=== PATIENT | female | born 1955 | race Caucasian/White ===

== ENCOUNTER 2017-03-06 12:43 | Outpatient (CLI) | payer BC ==
--- NOTE | 2017-03-06 13:56 | RAD ---
CHEST PA AND LATERAL 2 VIEWS: Date: 03/06/17 HISTORY: [id number] female with history of malignant neoplasm of the upper lobe of the lung. COMPARISON: 10/17/16. FINDINGS: Right subclavian catheter and injection port. Postop changes at the right hilum. Prominently calcifie d bilateral breast augmentation prosthesis. No confluent pneumonia, overt edema, or pleural effusion. IMPRESSION: No acute intrathoracic disease. Postop changes in the right hilum. Stable from prior study. No eviden ce for metastasis. POS: [facility]
== END 2017-03-06 12:44 | disposition home or self-care (01) ==
LOC: RAD 12:43
PROVIDERS: ATTEND Internal Medicine Medical Oncology
DX: C34.10 Malignant neoplasm of upper lobe, unspecified bronchus or lung (principal); Z98.890 Other specified postprocedural states
CPT/HCPCS: 71046; 80053; 82248; 82378; 83615; 84100; 84550

== ENCOUNTER 2017-04-02 08:57 | Outpatient (CLI) | payer BC | END 2017-04-02 08:58 | disposition home or self-care (01) | LOC: BICMAMMO 08:57 | PROVIDERS: ATTEND Family Medicine | DX: Z12.31 Encounter for screening mammogram for malignant neoplasm of breast (principal); Z80.3 Family history of malignant neoplasm of breast; Z85.118 Personal history of other malignant neoplasm of bronchus and lung; Z85.841 Personal history of malignant neoplasm of brain | CPT/HCPCS: 77063; 77067 ==

== ENCOUNTER 2017-05-02 08:52 | Outpatient (CLI) | payer BC ==
--- NOTE | 2017-05-02 12:05 | MRI ---
BRAIN MRI WITH AND WITHOUT CONTRAST: Date: 05/02/17 HISTORY: Malignant secondary neoplasm of the brain. Follow-up exam. Patient is tender to touch along the back of the scalp. COMPARISON: 01/03/17. TECHNIQUE: Brain MRI is performed with and without intravenous Gadolinium administration. Multisequential, multi planar imaging is performed. FINDINGS: Stable postsurgical change involving the left occipital calvarium. There is a stable surgical cavity. There is a stable small focus of fluid along the left extra-axial space at the level of the surgical cavity suggesting a chronic collection. Surgical cavity measures 4.4 x 4.3 cm (previously 4.0 x 4.4 cm). Gradient echo sequence demonstrates residual hemosiderin deposition. Stable T2 hyperintense, FLAIR hypointense lesion in the right frontal periventricular white matter. C hronic small vessel ischemic changes of white matter identified. Malacic gliotic changes in the left occipital lobe are noted. No midline shift. Basilar cisterns are patent. Brain volume, less than expected for patient's age. Cortical chacko-white matter differentiation is pre served with the exception of left occipital lobe. No evidence of hydrocephalus. Central arterial flow-voids are maintained. Absent restricted diffusion. Calvarium has a normal T1 marrow signal intensity. There is a small focus of enhancement involving the left posterior superior medial left femoral lobe. This area of enhancement has developed since the previous examination. Small metastatic focus is fav ored, given that this region is remote from the previous surgical site. There is a questionable second enhancing focus involving the posterior left anterior parietal lobe, o nly appreciated on the sagittal image (series 101, image 90). No obvious abscesses in the left scalp. Metallic susceptibility artifact due to surgical clips are no therese. IMPRESSION: 1. Stable postsurgical changes. 2. Interval development of an enhancing foci in the left frontal lobe suggesting a small area of met astasis. POS: [facility]
== END 2017-05-02 08:53 | disposition home or self-care (01) ==
LOC: TBSIIMAG 08:52
PROVIDERS: ATTEND Neurological Surgery
DX: C79.31 Secondary malignant neoplasm of brain (principal); Z98.890 Other specified postprocedural states
CPT/HCPCS: 70553

== ENCOUNTER 2017-05-17 09:10 | Day surgery (SDC) | payer BC ==
[2017-05-16 08:58] VITALS: BMI 22.8
[2017-05-17] MEDS ORDERED: Midazolam HCl 2 mg/2 ml Vial ONE (11:29)
--- NOTE | 2017-05-17 13:54 | MRI ---
MRI BRAIN WITH CONTRAST: Date: 05/17/17 HISTORY: 61-year-old female with brain metastasis from lung cancer. TECHNIQUE: This was specifically ordered as MRI brain with contrast only, by the radiation oncologist. COMPARISON: 05/02/17 standard brain MRI with and without contrast. TECHNIQUE: Following the IV injection of 12 mL of MultiHance Gadolinium based contrast agent, T1-weighted MPR ax ial and T1-weighted FLASH 3D coronal sequences were obtained. No other sequences. FINDINGS: Again noted is the left occipital craniotomy defect, deep to which there is a large, approximately 5 x 3 x 3 cm fluid-filled postsurgical cavity replacing a large portion of the left occipital lobe. No abnormal enhancement associated with this. Again noted is the small, approximately 0.7 x 0.4 x 0.4 cm focus of left paramedian intra-axial enhan cement in the posterior superior frontal lobe brain parenchyma. Ventricles are normal in size and configuration. Diffusely, homogeneously, increased pachymeningeal e nhancement is secondary to craniotomy. No other enhancing lesions are visualized. IMPRESSION: 1. Evidence for solitary tiny left paramedian posterior upper frontal intra-axial metastatic cerebra l lesion. 2. Postsurgical large left occipital porencephalic cyst, deep to a left occipital craniotomy defect. 3. No mass effect. POS: [facility]
== END 2017-05-17 13:35 | disposition home or self-care (01) ==
LOC: SDC/OP 09:10 → EDSTATUS 14:00
PROVIDERS: ATTEND Radiology Radiation Oncology
DX: C79.31 Secondary malignant neoplasm of brain (principal); C34.90 Malignant neoplasm of unspecified part of unspecified bronchus or lung; I10 Essential (primary) hypertension; K21.9 Gastro-esophageal reflux disease without esophagitis; F32.9 Major depressive disorder, single episode, unspecified; Z88.0 Allergy status to penicillin; Z79.82 Long term (current) use of aspirin; Z79.899 Other long term (current) drug therapy; Z87.891 Personal history of nicotine dependence; Z86.73 Personal history of transient ischemic attack (TIA), and cerebral infarction without residual deficits
CPT/HCPCS: 70552; J2250

== ENCOUNTER 2017-08-01 14:09 | Outpatient (CLI) | payer BC ==
--- NOTE | 2017-08-01 16:07 | MRI ---
BRAIN MRI WITH AND WITHOUT CONTRAST: 08/01/17 COMPARISON: 05/02/17. INDICATION: Lung cancer, brain metastases. Status post radiosurgery with request for imaging restaging. FINDINGS: Redemonstration of prominent gliosis throughout each cerebral hemisphere. There is cavitary encephalo malacia again seen at the left occipital and posterior left temporal region. Component of ex vacuo di latation of the occipital horn left lateral ventricle is similar in appearance. Postoperative suscept ibility artifact at the posterior left cranial fossa is again seen. There is no acute territorial inf arction. Chronic left cerebellar hemispheric lacunar infarction is present. There has been progressio n and volume of intra-axial enhancing focus at the medial left frontal parietal region, rounded in mo rphology, measuring 7 mm in axial diameter. There is surrounding vasogenic edema. IMPRESSION: Progressive metastatic lesion involving medial left frontoparietal lobe with progression and surround ing vasogenic edema. POS: [facility]
== END 2017-08-01 14:10 | disposition home or self-care (01) ==
LOC: TBSIIMAG 14:09
PROVIDERS: ATTEND Radiology Radiation Oncology
DX: C79.31 Secondary malignant neoplasm of brain (principal); C34.90 Malignant neoplasm of unspecified part of unspecified bronchus or lung; G93.6 Cerebral edema
CPT/HCPCS: 70553

== ENCOUNTER 2017-08-05 13:24 | Outpatient (CLI) | payer BC ==
--- NOTE | 2017-08-05 15:38 | RAD ---
PA AND LATERAL VIEWS OF CHEST: Date: 08/05/17 HISTORY: Lung cancer follow-up. FINDINGS: Comparison made with exam dated 06/05/16. Right-sided Port-A-Cath remains in place. Postop changes in the right hilum are redemonstrated. The h eart size is normal. Aorta is tortuous. The lungs are expanded with focal areas of consolidation, pne umothoraces, sammy pulmonary edema, or masses. Bilateral calcified breast augmentation prostheses are again seen. No acute osseous abnormalities are identified. IMPRESSION: Stable exam. No acute process. POS: [facility]
== END 2017-08-05 13:25 | disposition home or self-care (01) ==
LOC: RAD 13:24
PROVIDERS: ATTEND Internal Medicine Medical Oncology
DX: C34.12 Malignant neoplasm of upper lobe, left bronchus or lung (principal)
CPT/HCPCS: 71046

== ENCOUNTER 2017-11-14 08:00 | Outpatient (CLI) | payer BC ==
[2017-11-14] MEDS ORDERED: Gadobenate Dimeglumine 529 MG/1 ML (20ML VIAL) ONE (11:22)
--- NOTE | 2017-11-14 12:59 | MRI ---
MRI BRAIN WITH AND WITHOUT CONTRAST: COMPARISON: 08/01/17. HISTORY: Followup surgery and treatment for malignant neoplasm of the brain parenchyma. FINDINGS: Expected hemosiderin deposition of the surgical cavity on the axial gradient echo sequence. No acute parenchymal hemorrhage is appreciated. There is also evidence of hemosiderin deposition associated with a malignant lesion involving the medial left frontal lobe, parafalcine in region. There is wors ening vasogenic edema involving the left frontal, parietal, and occipital regions. Malacic and gliot tic change involving the occipital lobe is noted. Stable surgical cavity along the left occipital re gion. Absent restricted diffusion. Central arterial flow voids are maintained. Minimal enhancing scar tissue involving the dura in the region of surgery (left occipital region). T here is evidence of peripheral enhancement associated with the malignant lesion in the medial aspect of the left frontal lobe, parafalcine in location. This enhancing area measures 1.1 cm mediolateral x 1.5 cm anterior posterior x 1.9 cm craniocaudal. Previously, this lesion measured 7 mm. IMPRESSION: 1. Expected postoperative changes. 2. Enlarging metastatic lesion involving the medial left frontal lobe with worsening vasogenic edema . POS: [facility]
== END 2017-11-14 08:01 | disposition home or self-care (01) ==
LOC: TBSIIMAG 08:00
PROVIDERS: ATTEND Neurological Surgery
DX: C79.31 Secondary malignant neoplasm of brain (principal); G93.9 Disorder of brain, unspecified; R60.0 Localized edema; Z98.890 Other specified postprocedural states
CPT/HCPCS: 70553; 82565; A9579

== ENCOUNTER 2017-12-12 07:25 | Outpatient (CLI) | payer BC ==
--- NOTE | 2017-12-12 08:49 | RAD ---
CHEST 2 VIEWS: Date: 12/12/17 HISTORY: Lung cancer follow-up. COMPARISON: 08/05/17. FINDINGS: Heart size is enlarged. Right-sided MediPort catheter is present. Scoliotic changes of the spine. Ramone ateral breast implants are seen. Surgical clips are noted in the right hilar region. IMPRESSION: 1. Stable exam. Cardiomegaly with postop changes of the right lung. 2. Scoliosis. POS: [facility]
== END 2017-12-12 07:26 | disposition home or self-care (01) ==
LOC: RAD 07:25
PROVIDERS: ATTEND Internal Medicine Medical Oncology
DX: C34.12 Malignant neoplasm of upper lobe, left bronchus or lung (principal); I51.7 Cardiomegaly; M41.9 Scoliosis, unspecified; Z98.890 Other specified postprocedural states
CPT/HCPCS: 71046; 80053; 82248; 82378; 83615; 84100; 84550

== ENCOUNTER 2018-01-09 08:31 | Outpatient (CLI) | payer BC ==
--- NOTE | 2018-01-09 11:00 | MRI ---
MRI BRAIN WITH AND WITHOUT CONTRAST: INDICATION: Malignant neoplasm of the occipital lobe, followup. COMPARISON: Reference is made to 11/14/2017 brain MRI. FINDINGS: Postoperative encephalomalacia of the left occipital lobe is again demonstrated with interspersed, mu ltifocal susceptibility artifact. There is redemonstration of pathologic enhancement at the medial a spect of the left frontoparietal lobe, with interval decrease in volume of prior rim-enhancing lesion . There remains restricted diffusion as well as blanco artifact in this region. The finding indicate s decreasing volume of metastatic lesion with interval decrease with regard to the degree of rim enha ncement, as well. There has been interval improvement of associated vasogenic edema of the left cere bral hemisphere. Persistence of diffuse white matter signal abnormality throughout each cerebral hem isphere is again demonstrated, and has progressed with a more confluent appearance within the right c erebral hemisphere and comparison of left cerebral hemisphere is difficult due to the prominent degre e of vasogenic edema on previous exam. This finding favors radiation-induced leukoencephalopathy. T here is a stable focus of cavitation at the right periventricular white matter adjacent to the right frontal horn. IMPRESSION: 1. Interval decrease in size and interval decrease in enhancement with regards to the metastatic les ion of the medial, left frontoparietal lobe with residual enhancement, susceptibility, and restrictio n present. There has been improved vasogenic edema, as well. 2. Progressive white matter signal abnormality of the cerebral hemispheres favoring radiation-induce d leukoencephalopathy, in the correct clinical context. POS: [facility]
[2018-01-09] MEDS ORDERED: Gadobenate Dimeglumine 529 MG/1 ML (20ML VIAL) ONE (14:30)
== END 2018-01-09 08:32 | disposition home or self-care (01) ==
LOC: TBSIIMAG 08:31
PROVIDERS: ATTEND Neurological Surgery
DX: C71.4 Malignant neoplasm of occipital lobe (principal); C79.31 Secondary malignant neoplasm of brain
CPT/HCPCS: 70553; A9579

== ENCOUNTER 2018-03-04 07:50 | Outpatient (CLI) | payer BC ==
--- NOTE | 2018-03-04 09:13 | RAD ---
TWO VIEWS CHEST: Comparison: 12-12-17 History: Lung cancer. FINDINGS: Two views of the chest shows a normal sized cardiomediastinal silhouette. The Mediport is unchanged i n position. There is no evidence of consolidation, mass, or pleural effusions. There are calcified bi lateral breast implants. There are degenerative changes in the scoliotic curvature of the spine. IMPRESSION: No evidence of acute cardiopulmonary disease. POS: [facility]
== END 2018-03-04 07:51 | disposition home or self-care (01) ==
LOC: RAD 07:50
PROVIDERS: ATTEND Internal Medicine Medical Oncology
DX: C34.12 Malignant neoplasm of upper lobe, left bronchus or lung (principal)
CPT/HCPCS: 71046

== ENCOUNTER 2018-03-06 14:04 | Outpatient (CLI) | payer BC ==
--- NOTE | 2018-03-06 15:20 | RAD ---
RIGHT SHOULDER THREE VIEWS: HISTORY: Shoulder pain. FINDINGS: The humeral head appears normally positioned. No significant degenerative change at the glenohumeral joint. The AC joint is normally aligned. Evidence of an old healed fracture involving the posterior right 6th rib. IMPRESSION: No acute findings. POS: [facility]
== END 2018-03-06 14:05 | disposition home or self-care (01) ==
LOC: RAD 14:04
PROVIDERS: ATTEND Internal Medicine Medical Oncology
DX: M25.511 Pain in right shoulder (principal); C34.10 Malignant neoplasm of upper lobe, unspecified bronchus or lung

== ENCOUNTER 2018-03-13 08:04 | Outpatient (CLI) | payer BC ==
[2018-03-13] MEDS ORDERED: Gadobenate Dimeglumine 529 MG/1 ML (20ML VIAL) ONE (11:27)
--- NOTE | 2018-03-13 11:34 | MRI ---
MRI BRAIN WITH AND WITHOUT CONTRAST: Date: 03/13/18 HISTORY: Secondary malignant neoplasm of the brain. Brain tumor follow-up. COMPARISON: 01/09/18. FINDINGS: Hemosiderin deposition in the left cerebellar hemisphere, left cerebrum are redemonstrated. No acute hemorrhage on the axial gradient echo sequence. Postsurgical changes compatible with left occipital craniectomy. There is a postsurgical cavity in th e left occipital region currently measuring 4.3 x 3.5 cm (previously measuring 4.0 x 3.9 cm). There i s associated peripheral T2 and FLAI hyperintensity suggesting gliotic change. Additional, stable T2 a nd FLAIR white matter hyperintensities are noted. Central arterial flow-voids are maintained. Absent restricted diffusion. Remote lacunar infarct in the right frontal subcortical white matter. Postcontrast images are limited due to motion degradation. There is a focal faint area of enhancement along the medial left frontoparietal cortex. The degree of enhancement has decreased when compared t o the previous exam. Mucosal disease of the maxillary sinuses is noted. IMPRESSION: 1. Redemonstration of a postsurgical cavity in the left occipital region, without any significant in crease in size. 2. Faint focus of enhancement involving the medial aspect of the left frontoparietal region. This fo cus of enhancement has decreased in size and currently measures 0.6 x 0.1 cm. POS: [facility]
== END 2018-03-13 08:05 | disposition home or self-care (01) ==
LOC: TBSIIMAG 08:04
PROVIDERS: ATTEND Neurological Surgery
DX: C79.31 Secondary malignant neoplasm of brain (principal)
CPT/HCPCS: 70553; 82565; A9579

== ENCOUNTER 2018-04-04 08:54 | Outpatient (CLI) | payer BC | END 2018-04-04 08:55 | disposition home or self-care (01) | LOC: BICMAMMO 08:54 | PROVIDERS: ATTEND Family Medicine | DX: Z12.31 Encounter for screening mammogram for malignant neoplasm of breast (principal); Z80.3 Family history of malignant neoplasm of breast; Z85.118 Personal history of other malignant neoplasm of bronchus and lung; Z85.841 Personal history of malignant neoplasm of brain | CPT/HCPCS: 77063; 77067 ==

== ENCOUNTER 2018-06-16 12:40 | Inpatient (IN) | payer BC ==
[2018-06-16 13:43] VITALS: BMI 21.4
[2018-06-16] MEDS ORDERED: Bisacodyl 5 MG TAB PO PRN (14:15)
[2018-06-16 14:43] LABS: Hemoglobin 10.6 g/dL (12.0-16.0); Mean Corpuscular HGB CONC 31.8 g/dL (32.0-36.0); Mean Corpuscular Hemoglobin 29.4 pg (27.0-31.0); Mean Corpuscular Volume 92.5 fL (78.0-98.0); Mean Platelet Volume 6.6 fL (7.4-10.4); Platelet Count 574 thou/uL (130-400); RBC Distribution Width 12.5 % (11.5-14.5); Red Blood Cell (RBC) Count 3.59 mill/uL (4.20-5.40); White Blood Cell (WBC) Count 20.8 thou/uL (4.8-10.8)
[2018-06-16 14:56] LABS: ALT (SGPT) 45 U/L (8-55); AST (SGOT) 33 U/L (5-34); Albumin 3.2 g/dL (3.5-5.0); Alkaline Phosphatase 161 U/L (40-150); Anion Gap 17 mmol/L (10-20); BUN (Urea Nitrogen) 24 mg/dL (9.8-20.1); Bilirubin, Total 1.1 mg/dL (0.2-1.2); Calc. Creatinine Clearance 48 mL/min (70-130); Calcium 10.1 mg/dL (7.8-10.44); Carbon Dioxide 20 mmol/L (22-29); Chloride 102 mmol/L (98-107); Estimated GFR-MDRD 61; Globulin 3.7 g/dL (2.4-3.5); Glucose 100 mg/dL (70-105); Potassium 4.4 mmol/L (3.5-5.1); Protein, Total 6.9 g/dL (6.0-8.3); Sodium 135 mmol/L (136-145)
[2018-06-16 14:59] LABS: Band 5 % (5-11); Lymphocytes 4 % (21-51); MDiff Complete? YES; Monocytes 6 % (0-10); Neutrophil 84 % (42-75); Platelet Morphology Comment Appears Increased; Polychromasia SLIGHT = 2-3 cells (100X) (0-2/hpf)
[2018-06-16] MEDS ORDERED: ISOVUE-370 76%-LOCM 1 ML ONE (15:04)
--- NOTE | 2018-06-16 15:06 | HP ---
PRIMARY CARE PROVIDER: Jose Alejandro Roe MD CHIEF COMPLAINT: Generalized weakness. HISTORY OF PRESENT ILLNESS: Ms. Rollins is a pleasant 62-year-old lady, who was seen at [facility] on June 16, 2018, following direct admission from her primary care provider's office. I discussed her case with Dr. Roe prior to this admission, and he updated me of medical history as well as active issues at this time. She has a history of lung cancer with metastasis to brain. She underwent chemotherapy in the past. Her oncologist is Dr. Norwood. She also had brain metastases and underwent 3 surgeries for the same. Her neurosurgeon is Dr. Peguero. She reports that she was doing well earlier this year. Over the last 3 weeks, she started feeling nauseous. She reports very little vomiting, main symptom is nausea. She is not tolerating oral diet. Her blood pressure has also been low, which is unusual for her. She reports that she is taking all her medications at this time, including antihypertensives. She also reports left hip pain and left lower quadrant pain. She is unable to characterize it further. Her last bowel movement was yesterday. She reports losing 12 pounds weight over the last 3 weeks. She reports generalized weakness, difficulty getting around the house. She denies any fevers or chills. REVIEW OF SYSTEMS: All other systems reviewed and found to be negative. PAST MEDICAL HISTORY: Lung cancer, brain metastases, hypertension, dyslipidemia , stroke, alcohol abuse, tobacco abuse, gastroesophageal reflux disease, depression, and osteoarthritis. PAST SURGICAL HISTORY: Right total knee replacement, breast implants, lung cancer surgery, neurosurgery for brain metastasis x3, and left total knee replacement. FAMILY HISTORY: Significant for breast cancer and diabetes in her mother. SOCIAL HISTORY: The patient denies current tobacco use, alcohol use, or recreational drug use. CODE STATUS: I attempted to discuss her code status. She would like to think about it and discuss with her . She is aware that by default, she is full code. ALLERGIES: Penicillins CURRENT MEDICATIONS: 1. Irbesartan 300 mg daily. 2. Amlodipine 10 mg daily. 3. Simvastatin 20 mg in the evening. 4. Aspirin 81 mg daily. 5. Aleve p.r.n. 6. Women's Daily Formula one tablet daily. 7. Potassium chloride 20 mEq 2 times a day. PHYSICAL EXAMINATION: GENERAL: On examination, Ms. Rollins is awake and alert, not in acute distress. VITAL SIGNS: Blood pressure is 92/57, pulse 74, respiratory rate 16, and oxygen saturation 95% on room air. She is afebrile. EYES: No scleral icterus. No conjunctival pallor. She has strabismus. ENT: Dry mucosal membranes. No oropharyngeal erythema or exudates. NECK: Supple, nontender, trachea is midline. RESPIRATORY: Accessory muscles of breathing are not active. Chest wall movements are symmetric bilaterally. LUNGS: Clear to auscultation without wheeze, rhonchi, or crepitations. CARDIOVASCULAR: S1 and S2 are heard, regular. Peripheral pulses palpable. ABDOMEN: Soft, mild left lower quadrant tenderness, no guarding or rigidity, she appears to have a mass in the left lower quadrant. NEUROLOGIC: Cranial nerves 2 through 12 are intact. MUSCULOSKELETAL: Power is 5/5 in all four extremities. SKIN: No rashes or subcutaneous nodules. LYMPHATIC: No cervical lymphadenopathy. PSYCHIATRIC: Normal mood, normal affect, the patient is oriented to person, place, and time. LABORATORY DATA: Ms. Rollins is currently awaiting blood work. ASSESSMENT AND PLAN: Ms. Rollins is a pleasant 62-year-old lady, who was seen at [facility] on June 16, 2018, following direct admission from primary care provider's office. Her problem list includes: 1. Generalized weakness: Ms. Rollins is presenting with generalized weakness, secondary to poor oral intake due to nausea. She also reports significant weight loss. She will be admitted to the hospital for further management. We will check her blood work. We will also check CT scan of chest, abdomen, and pelvis. I am deferring ordering this test until her creatinine is available. We will provide intravenous hydration. We will ask dietitian to see the patient to help with nutrition management. 2. Abdominal pain: She reports abdominal pain. She appears to have a mass in her left lower quadrant. We will check CT scan to evaluate. 3. Hypertension: The patient's blood pressure is actually low at this time. We will hold antihypertensives. 4. History of lung cancer: We will consult Oncology Service for opinion and help with management. 5. Depression: Mild, appears to be stable. Many thanks for allowing me to participate in your patient's care. Please feel free to contact me with any questions or concerns. LEVEL OF RISK: Moderate. LEVEL OF COMPLEXITY: Moderate. Job ID: [id number] MTDD
[2018-06-16] MEDS: Sodium Chloride 0.9% 1,000 ML IV SCH (15:57)
[2018-06-16] MEDS ORDERED: Calcium Carbonate 500 MG ChewTAB PO PRN (18:06)
[2018-06-16] MEDS ORDERED: GLYCERIN EA EYE PRN (18:30)
[2018-06-16] MEDS ORDERED: NAPHAZOLINE EA EYE PRN (18:30)
[2018-06-16] MEDS ORDERED: Naproxen 500 MG TAB PO PRN (18:30)
[2018-06-16] MEDS ORDERED: ZINC SULF EA EYE PRN (18:30)
--- NOTE | 2018-06-16 19:27 | CT ---
CT OF THE CHEST, ABDOMEN, AND PELVIS: Date: 06-16-18 Comparison: None. History: Evaluate for malignancy, history of lung cancer with recent weight loss and nausea. Technique: Axial CT imaging at 5 mm intervals from lung bases through pubic symphysis with IV and ora l contrast. Coronal reformatted imaging obtained. FINDINGS: There are rim calcified breast implants present. A right sided port-a-cath is noted, distal tip exten ding into the region of the cavoatrial junction. No axillary, mediastinal, or hilar lymphadenopathy is seen. Scattered coronary arterial calcification is noted. There is scattered atherosclerotic calcification of the proximal great vessels as well. There is no pneumothorax. No pleural, paracardial, or mediastinal fluid is seen. Nonspecific ill-defined ground glass nodule noted within right lower lobe on axial image 28, coronal image 81, measuring approximately 8 mm in greatest dimension. Post-operative suture material is seen in the right hilar region. Linear density in the lingula is noted suggesting scar and/or volume loss. The osseous structures of the chest demonstrate no worrisome lytic or blastic bone lesions. No free intraperitoneal gas. No discrete hepatic lesion noted. Gallbladder and spleen appear grossly unremarkable. No discrete matthews creatic mass lesion. Adrenal glands and kidneys demonstrate no acute finding. There is a large lobulated hypodense irregular rim-enhancing lesion within the posterior and lateral left abdomen measuring at least 15.7 cm in greatest craniocaudal dimension, 6.9 cm in AP dimension an d 6.9 cm in transverse dimension. This is intimately associated with the anterior aspect of the iliac us muscle and the left lateral aspect of the psoas muscle, abutting the posterior aspect of the desce nding colon. This large lesion is markedly hypodense centrally, with a thin peripheral enhancing rim. There is no evidence for bowel obstruction. The vascular structures of the abdomen/pelvis appear patent with scattered atherosclerotic calcificat ion of the abdominal aorta noted. No retroperitoneal lymphadenopathy. Osseous structures of abdomen/p naeem demonstrate no worrisome lytic or blastic bone lesion. IMPRESSION: 1. Large hypodense lobulated and irregular mass lesion involving the iliopsoas musculature on the lef t, inseparable from the posterior wall of the descending colon. Etiology is uncertain. This may repre sent an abscess or a markedly necrotic metastatic lesion. Clinical correlation is essential. This les ion appears amendable to CT guided sampling. Additional findings as detailed above, including a pulmo nary nodule within the right lower lobe for which short term follow up CT examination of the chest in 3 months advised. Code T POS: [facility]
[2018-06-16] MEDS: Multivit, Therapeutic 1 TAB PO SCH (20:26)
[2018-06-16] MEDS: Atorvastatin Calcium 10 MG TAB PO SCH (20:27)
[2018-06-17] MEDS: Acetaminophen 325 MG TAB PO PRN ×3 (02:10→19:41)
[2018-06-17] MEDS: Sodium Chloride 0.9% 1,000 ML IV SCH ×2 (05:27→19:39)
[2018-06-17 06:40] LABS: #Eosinphils 0.1 thou/uL (0.0-0.7); #Lymphocytes 1.6 thou/uL (1.20-3.40); #Monocytes 1.2 thou/uL (0.11-0.59); #Neutrophils 11.7 thou/uL (1.40-6.50); %Basophils 0.1 % (0.0-1.0); %Eosinophils 0.6 % (0.0-10.0); %Lymphocytes 10.9 % (21.0-51.0); %Monocytes 7.9 % (0.0-10.0); %Neutrophils 80.5 % (42.0-75.0); Hemoglobin 9.6 g/dL (12.0-16.0); Mean Corpuscular HGB CONC 32.6 g/dL (32.0-36.0); Mean Corpuscular Volume 92.1 fL (78.0-98.0); Mean Platelet Volume 6.4 fL (7.4-10.4); Platelet Count 518 thou/uL (130-400); RBC Distribution Width 12.6 % (11.5-14.5); White Blood Cell (WBC) Count 14.5 thou/uL (4.8-10.8)
[2018-06-17 06:57] LABS: Anion Gap 15 mmol/L (10-20); BUN (Urea Nitrogen) 14 mg/dL (9.8-20.1); Calc. Creatinine Clearance 58 mL/min (70-130); Calcium 9.1 mg/dL (7.8-10.44); Carbon Dioxide 19 mmol/L (22-29); Chloride 106 mmol/L (98-107); Estimated GFR-MDRD 74; Glucose 97 mg/dL (70-105); Potassium 3.8 mmol/L (3.5-5.1); Sodium 136 mmol/L (136-145)
[2018-06-17] MEDS: Aspirin 81 mg Enteric Coated Tablet PO SCH (08:19)
--- NOTE | 2018-06-17 11:04 | PDOC.PN ---
- Subjective Encounter Start Date: 06/17/18 Encounter Start Time: 11:03 Subjective: Pt is seen and examined for Generalized weakness and Left Lower Quadrant -: Pain - Objective MAR Reviewed: Yes Vital Signs & Weight: Vital Signs (12 hours) Temp Pulse Resp BP Pulse Ox 06/17/18 07:21 97.8 F 78 16 93/64 98 06/17/18 04:00 97.4 F L 73 16 88/63 L 97 06/17/18 00:00 98.2 F 87 16 91/61 95 Weight Weight 106 lb 5 oz I&O: 06/16/18 06/17/18 06/18/18 06:59 06:59 06:59 Intake Total 1050 Balance 1050 Result Diagrams: 06/17/18 06:30 06/17/18 06:30 Phys Exam - Physical Examination HEENT: PERRLA, moist MMs, oral pharynx no lesions Neck: no nodes, no JVD Respiratory: no wheezing, no rales, no rhonchi Cardiovascular: RRR, no significant murmur, no rub Gastrointestinal: soft, no distention, positive bowel sounds Tenderness LLQ, Mass firm in Consistency Musculoskeletal: no edema, pulses present Neurological: non-focal, normal sensation Lymphatic: no nodes Psychiatric: normal affect, A&O x 3 Dx/Plan - Plan cont current plan of care, DVT proph w/SCDs 1) Lung Cancer with Brain Mets, Oncology consulted -: 2) Left Lower Abdominal Mass, Oncology consulted -: 3) Continue IV Fluids and Pain management * . Review of Systems - Review of Systems Eyes: negative: Pain, Vision Change, Conjunctivae Inflammation, Eyelid Inflammation, Redness, Other ENT: negative: Ear Pain, Ear Discharge, Nose Pain, Nose Discharge, Nose Congestion, Mouth Pain, Mouth Swelling, Throat Pain, Throat Swelling, Other Respiratory: negative: Cough, Dry, Shortness of Breath, Hemoptysis, SOB with Excertion, Pleuritic Pain, Sputum, Wheezing Cardiovascular: negative: chest pain, palpitations, orthopnea, paroxysmal nocturnal dyspnea, edema, light headedness, other Gastrointestinal: Nausea, Vomiting, Abdominal Pain, Diarrhea Genitourinary: negative: Dysuria, Frequency, Incontinence, Hematuria, Retention , Other Musculoskeletal: negative: Neck Pain, Shoulder Pain, Arm Pain, Back Pain, Hand Pain, Leg Pain, Foot Pain, Other Skin: negative: Rash, Lesions, Terrell, Bruising, Other Neurological: negative: Weakness, Numbness, Incoordination, Change in Speech, Confusion, Seizures, Other - Medications/Allergies Allergies/Adverse Reactions: Allergies Allergy/AdvReac Type Severity Reaction Status Date / Time Penicillins Allergy Intermediate Hives Verified 05/16/17 08:58 Medications: Current Medications Acetaminophen (Tylenol) 650 mg PO Q4H PRN PRN Reason: Headache/Fever/Mild Pain (1-3) Last Admin: 06/17/18 08:19 Dose: 650 mg Aspirin (Ecotrin) 81 mg PO QAM [facility] Last Admin: 06/17/18 08:19 Dose: 81 mg Atorvastatin Calcium (Lipitor) 10 mg PO HS [facility] Last Admin: 06/16/18 20:27 Dose: 10 mg Bisacodyl (Dulcolax) 10 mg PO DAILYPRN PRN PRN Reason: Constipation Calcium Carbonate (Tums) 500 mg PO TID PRN PRN Reason: Heartburn or Indigestion Sodium Chloride (Normal Saline 0.9%) 1,000 mls @ 70 mls/hr IV .[id number] [facility] Last Admin: 06/17/18 05:27 Dose: 1,000 mls Multivitamins (Theragran) 1 tab PO QPM [facility] Last Admin: 06/16/18 20:26 Dose: 1 tab Naproxen (Naprosyn) 250 mg PO BID PRN PRN Reason: Pain
[2018-06-17] MEDS: Atorvastatin Calcium 10 MG TAB PO SCH (19:38)
[2018-06-17] MEDS: Multivit, Therapeutic 1 TAB PO SCH (19:38)
--- NOTE | 2018-06-17 21:09 | CON ---
DATE OF CONSULTATION: REASON FOR CONSULT: Abdominal mass. HISTORY OF PRESENT ILLNESS: Ms. Rollins is a pleasant 62-year-old female with a past medical history of lung cancer with brain metastases, last treated in 2018. She was in her normal state of health until approximately 3 weeks ago when she began to have left lower quadrant abdominal pain, nausea, loss of appetite, weight loss, weakness, and fatigue. She saw her primary care physician yesterday and was admitted for further workup. She underwent a chest, abdomen, and pelvis CT which showed a large lobulated hypodense rim-enhanced lesion within the posterior and lateral left abdomen. It measured 15.7 cm x 6.9 cm x 6.9 cm. It had a peripherally enhancing rim and was associated with the iliacus and psoas muscle. There was also an 8 mm nonspecific lung nodule. There is no evidence of bony lesions. The patient has been constipated and has had one bowel movement in the last 3 weeks with magnesium citrate. She has had no chest pain, minimal shortness of breath. No lower extremity swelling. Denies any fever, chills, or night sweats. PAST MEDICAL HISTORY: 1. Adenocarcinoma of the lung with brain metastases. 2. Hypertension. 3. High cholesterol. 4. Arthritis. PAST SURGICAL HISTORY: 1. Surgical excision of brain lesion. 2. Radiosurgery. ALLERGIES: TO PENICILLIN. HOME MEDICATIONS: 1. Norvasc 10 mg daily. 2. Aspirin 81 mg daily. 3. Tums p.r.n. 4. Irbesartan 300 mg daily. 5. Aleve p.r.n. 6. Zocor 20 mg daily. FAMILY HISTORY: Mother had breast cancer in her late 60s. She had an uncle with leukemia. SOCIAL HISTORY: , has 2 children. No alcohol, tobacco, or illicit drug use. REVIEW OF SYSTEMS: A 10-point review of systems is negative except for noted in HPI. PHYSICAL EXAMINATION: VITAL SIGNS: Temperature 97.4, pulse is 72, respiratory rate 16, BP is 90/62. She is 98% on room air. GENERAL: This is a well-developed, well-nourished female, in no acute distress. HEENT: Normocephalic, atraumatic. Pupils are equal and reactive to light. NECK: Supple. CV: Regular rate and rhythm. LUNGS: Clear. ABDOMEN: Soft, mildly tender in the left lower quadrant. No organomegaly. No palpable mass. EXTREMITIES: No clubbing, cyanosis, or edema. SKIN: No rash. HEMATOLOGICAL: No petechiae or purpura. NEUROLOGICAL: Nonfocal. PSYCH: The patient is alert, oriented, and appropriate. PERTINENT LABS AND X-RAYS: Current WBCs are 14.5, hemoglobin 9.6, hematocrit 29.5, platelet count is 518,000. She got 80% neutrophils, 10% lymphocytes. Sodium is 136, potassium 3.8, chloride 106, CO2 is 19, BUN is 14, creatinine 0.79, calcium is 9.1, total bilirubin is 1.1, AST is 33, ALT is 45, alkaline phosphatase is 161. Serum total protein 6.9, albumin 3.2, globulin 3.7. Radiology per HPI. ASSESSMENT: 1. Large left lower quadrant abdominal mass. 2. History of lung cancer. DISCUSSION: Per CT scan, mass is amenable to CT-guided needle biopsy. We will schedule that and hopefully can be done today. There is no other evidence of disease on CT scan. This was explained to the patient and her family. Further recommendations will be based on biopsy results. Thank you for the consult. Job ID: [id number]
[2018-06-18] MEDS: Aspirin 81 mg Enteric Coated Tablet PO SCH (06:41)
[2018-06-18] MEDS: Sodium Chloride 0.9% 1,000 ML IV SCH ×2 (08:03→23:16)
[2018-06-18] MEDS: Ondansetron PF 4 MG/2 ML Vial IVP PRN ×2 (08:55→19:59)
[2018-06-18] MEDS ORDERED: Promethazine HCl 12.5 MG in Sodium Chloride 0.9% 50 ML IVPB PRN (09:24)
--- NOTE | 2018-06-18 09:38 | PRG ---
DATE OF SERVICE: 06/18/2018 SUBJECTIVE: The patient continues to have some nausea and left lower quadrant abdominal pain. OBJECTIVE: VITAL SIGNS: Temperature 98.1, pulse 80, respirations 14, O2 sat 98% on room air, and blood pressure 98/66. GENERAL APPEARANCE: Age-appropriate female, in no distress. She does appear slightly uncomfortable, but awake, alert, pleasant, and cooperative. HEART: Regular rate and rhythm without murmurs, gallops, or rubs. LUNGS: Clear to auscultation bilaterally. ABDOMEN: Soft, nontender, and nondistended. Positive bowel sounds. No masses. No organomegaly. EXTREMITIES: No cyanosis, clubbing, or edema. IMPRESSION AND PLAN: 1. Abdominal mass concerning for possible cancer in a patient with a history of cancer, but cannot rule out infectious etiology. I will be getting a biopsy today by CT guidance with Radiology. Oncology is following. 2. Nausea. Add Zofran and Phenergan. 3. Abdominal pain, tolerable for now. We will provide p.r.n.'s as needed for pain. 4. Leukocytosis, slightly improved. Continue to monitor. No antibiotics indicated at this time. She has been afebrile. 5. Anemia, likely related to chronic disease. We will continue to follow. 6. History of lung cancer, stable. 7. Depression. Stable. 8. Hypertension. The patient's blood pressure has actually been somewhat low. Holding off on any antihypertensive medications. Job ID: [id number]
--- NOTE | 2018-06-18 12:50 | PQF ---
KIM HERNANDEZ DAVID R MD [id number] [facility] [id number] CLINICAL DOCUMENTATION IMPROVEMENT CLARIFICATION FORM: ICD-10 Updated PLEASE DO AN ADDENDUM TO THE PROGRESS NOTE WITH ANY DOCUMENTATION UPDATES OR ADDITIONS AND CARRY THROUGH TO DC SUMMARY. THANK YOU. Date: 06/18/18 ATTN: Dr. Abraham Please exercise your independent, professional judgment in responding to the clarification form. Clinical indicators are provided on the bottom of this form for your review Please check appropriate box(s): [ x ] Protein Calorie Malnutrition: [ ] Mild [ x] Moderate [ ] Other Malnutrition (please specify) __ [ ] Other diagnosis [ ] Unable to determine In addition, please specify: Present on Admission (POA): [ x ] Yes [ ] No [ ] Unable to determine CLINICAL INDICATORS - SIGNS / SYMPTOMS / LABS Two or More of the Following: Unintentional Insufficient Energy Intake--> 06/17 RD: 25% last meal eaten Weight Loss--> 06/17 RD: -9% wt loss in 3 wks Loss of Muscle Mass--> 06/17 RD: mild muscle wasting RISK FACTORS Change in appetite / nausea / vomiting / diarrhea--> 06/17 RD: poor appetite, nausea 2-3 wks Inability to consume adequate caloric intake -->06/17 RD: nausea 2-3 wks Chronic illness history of lung cancer with mets to brain H&P TREATMENT: Dietary consult 06/17 orders Nutritional supplements--> Ensure Enlive BID 06/17 orders Thank you, Kathy Moderate Malnutrition (in acute illness) Energy Intake: <75% of estimated energy requirement for > 7 days Weight Loss: 1-2%/1 week; 5%/ 1 month; 7.5%/3 months Other: mild body fat loss; mild muscle mass loss; mild fluid accumulation; Severe Malnutrition (in acute illness) Energy Intake: < 50% of estimated energy requirement for > 5 days Weight Loss: >1-2%/1 week; >5%/1 month; >7.5%/3 months [employer] Forms Builder [employer] Winform ViewerOther: moderate body fat loss; moderate muscle mass loss; moderate- severe fluid accumulation; measurably reduced office correspondent strength Moderate Malnutrition (in chronic illness) Energy Intake: <75% of estimated energy requirement for >1 month Weight Loss: 5%/1 month; 7.5%/3 months; 10%/6 months; 20%/1 year Other: mild body fat loss; mild muscle mass loss; mild fluid accumulation Severe Malnutrition (in chronic illness) Energy Intake: <75% of estimated energy requirement for >1 month Weight Loss: >5%/1 month; >7.5%/3 months; >10%/6 months; >20%/1 year Other: severe body fat loss; severe muscle mass loss; severe fluid accumulation ; measurably reduced office correspondent strength (This form is maintained as a part of the permanent medical record) 2014 [employer]. All Rights Reserved Kathy Kennedy RN, BSN, CCDS [email or web address]
[2018-06-18] MEDS ORDERED: Fentanyl 100 MCG/2 ML VIAL ONE (13:18)
[2018-06-18] MEDS ORDERED: Sodium Bicarbonate 2.5 MEQ/5 ML VIAL ONE (13:18)
[2018-06-18] MEDS ORDERED: Midazolam HCl 2 mg/2 ml Vial ONE (13:18)
[2018-06-18 19:36] LABS: Clarity Cloudy/Turbid (Clear)
[2018-06-18 19:37] LABS: BF Color Red; RBC Background Count 0.001; Tube # EDTA; WBC Background Count 0.01
[2018-06-18 19:40] LABS: RBC Count-Automated 478000 /cumm; WBC/NonHematic-Auto 107840 /cumm
[2018-06-18] MEDS: Multivit, Therapeutic 1 TAB PO SCH (19:59)
[2018-06-18] MEDS: traMADol HCl 50 MG TAB PO PRN (19:59)
[2018-06-18] MEDS: Atorvastatin Calcium 10 MG TAB PO SCH (19:59)
[2018-06-18] MEDS: Enoxaparin Sodium 40 MG/0.4 ML SYRINGE SC SCH (20:00)
[2018-06-18] MEDS: Cefepime 2 GM in Sodium Chloride 0.9% 100 ML IVPB SCH (20:00)
[2018-06-18] MEDS: Clindamycin/D5W 600 MG in Premix Bag 1 BAG IVPB SCH (21:26)
--- NOTE | 2018-06-18 22:44 | HP ---
HISTORY OF PRESENT ILLNESS: Kelli Rollins is a 62-year-old female whom I have been asked to see regarding pain in her left lower quadrant. The patient has been having pain 2 to 3 weeks with alteration in her bowel habits, constipation. She has now been taking some laxatives. She had a small bowel movement yesterday. She has a history of lung cancer, metastasis to the brain. She has been treated with multiple stereotactic biopsies and surgery by Dr. Peguero. She has had radiation. She was admitted this hospitalization. 06/16/2018, CT scan of the abdomen and pelvis revealed a large mass over the left psoas. She underwent CT-guided drainage today. There is large amount of purulent material drained. She has ordered saline irrigation into the abscess cavity 3 times a day. The patient feels somewhat better. She is currently not on any intravenous antibiotics. ALLERGIES: PENICILLIN. SOCIAL HISTORY: Tobacco, none. Alcohol, none. PAST MEDICAL HISTORY: Lung cancer, brain metastasis, hypertension, dyslipidemia, stroke, alcohol use, tobacco use in the past, none currently, GERD, depression, osteoarthritis. PAST SURGICAL HISTORY: Right total knee replacement, breast implants 37 years ago, lung resection by Dr. Monroy more than 5 years ago, multiple stereotactic brain surgeries for brain metastasis and left total knee replacement, one performed by , the other by Dr. Valentino. She reports having had a colonoscopy [address] Alexander. MEDICATIONS: 1. Irbesartan. 2. Amlodipine. 3. Simvastatin. 4. Aspirin. 5. Aleve p.r.n. 6. Potassium. PHYSICAL EXAMINATION: VITAL SIGNS: 4 feet 11 inches, 106 pounds, 98.1, 83, 100/70. LUNGS: Clear to auscultation. CARDIAC: Regular rate and rhythm without murmur or gallop. ABDOMEN: Soft, flat, nontender, and nondistended. CT-guided drain with purulent drainage and material. EXTREMITIES: Unremarkable. LABORATORY DATA: White count 14, down from 20 on admission. Basic metabolic profile normal. ASSESSMENT/PLAN: 1. Psoas abscess. This is very large. She has successfully undergone percutaneous drainage, CT-guided. I would irrigate the tube 3 times a day with saline as instructed. Would teach the patient how to irrigate this and care for this and record the output. We would recommend that she follow up in my office next week for evaluation of the drain. I will arrange a CAT scan that she will obtain prior to that office visit. We will continue the drain in the hospital and plan discharge home in the next day or two. We would start her on intravenous antibiotics while in the hospital and change her to p.o. antibiotics as an outpatient. The etiology of this abscess could be diverticulitis, it is unlikely to be malignant as she had a colonoscopy just [address] Alexander. 2. History of lung resection by Dr. Monroy with brain metastasis treated by Dr. Peguero status post radiation of the brain. 3. Hypertension. Job ID: [id number]
[2018-06-19] MEDS: traMADol HCl 50 MG TAB PO PRN ×4 (05:45→20:16)
[2018-06-19] MEDS: Clindamycin/D5W 600 MG in Premix Bag 1 BAG IVPB SCH ×3 (05:45→21:28)
[2018-06-19] MEDS: Sodium Chloride 0.9% 1,000 ML IV SCH ×2 (05:46→18:44)
[2018-06-19] MEDS: Cefepime 2 GM in Sodium Chloride 0.9% 100 ML IVPB SCH ×2 (08:58→20:13)
[2018-06-19] MEDS: Aspirin 81 mg Enteric Coated Tablet PO SCH (09:00)
[2018-06-19] MEDS: Polyethylene Glycol 3350 17 GM Packet PO SCH (09:01)
--- NOTE | 2018-06-19 10:28 | CT ---
EXAM: CT guided drainage of a left lower abdominal and pelvic fluid collection PROVIDED CLINICAL HISTORY: CT examination demonstrating a fluid collection with enhancing miller seen in the left lower abdomen a nd upper pelvis. Drainage versus biopsy was requested. COMPARISON: CT abdomen and pelvis on 06/16/2018. FINDINGS: After informed consent was obtained, the patient was placed on the CT table in the prone position. Li mited noncontrast CT scan was obtained through the lower abdomen/upper pelvis with grid localizer in place. An area overlying the large fluid collection was marked, and the area was meticulously prep ped and draped in usual sterile fashion. The skin and subcutaneous tissues were infiltrated with buffered 1% lidocaine for local anesthesia. A 17-gauge guide needle was advanced into the mass, and positioning was confirmed with [address] images. Aspiration demonstrated purulent material. As result, the needle was exchang ed over a 0.035 inch Amplatz guidewire for an 8 Croatian tissue dilator followed by placement of an 8 Croatian cope loop all-purpose drainage catheter. Approximately 127 mL of purulent fluid was aspirated. The catheter was flushed and placed to gravity drainage. The catheter was sutured in place utilizing 2-0 Ethilon suture material. A dry sterile dressing was placed. The patient tolerated the procedure well and without immediate complication. IMPRESSION: 1. Large fluid collection left lower abdomen and pelvis. Aspiration yielded purulent material suggest ing abscess collection. 2. An 8 Croatian cope loop all-purpose drainage catheter was successfully placed within the collection utilizing CT guidance. Specimen was collected and sent for labs. Transcribed Date/Time: 06/19/2018 10:28 AM
--- NOTE | 2018-06-19 12:55 | PDOC.PN ---
- Subjective Encounter Start Date: 06/19/18 Encounter Start Time: 12:45 Subjective: f/u for L psoas abscess s/p CT-guided percutaneous drainage with -: indwelling catheter. Feels better overall. Receiving Clindamycin/Cefepime - Objective MAR Reviewed: Yes Vital Signs & Weight: Vital Signs (12 hours) Temp Pulse Resp BP Pulse Ox 06/19/18 08:00 98 F 73 16 93/61 96 06/19/18 04:00 98 F 68 18 103/70 98 Weight Admit Weight 106 lb 4.8 oz Weight 106 lb 5 oz I&O: 06/18/18 06/19/18 06/20/18 06:59 06:59 06:59 Intake Total 3340 1340 Output Total 40 60 Balance 3340 1300 -60 Result Diagrams: 06/17/18 06:30 06/17/18 06:30 Additional Labs: Microbiology 06/18/18 13:40 Abdomen - Abscess Bacterial Culture - Preliminary Laboratory Tests 06/16/18 06/17/18 14:26 06:30 WBC 20.8 H Hgb 10.6 L Plt Count 574 H Neutrophils % 80.5 H Neutrophils % (Manual) 84 H Phys Exam - Physical Examination Constitutional: NAD HEENT: PERRLA, sclera anicteric, oral pharynx no lesions Neck: no nodes, no JVD, supple, full ROM R upper chest wall with Mediport in place Respiratory: no wheezing, no rales, no rhonchi, clear to auscultation bilateral S1, S2 Cardiovascular: RRR, no significant murmur, no rub, gallop percutaneous catheter in L flank with purulent drainage in bag Gastrointestinal: soft, non-tender, no distention, positive bowel sounds Musculoskeletal: no edema, pulses present Neurological: normal sensation, moves all 4 limbs Psychiatric: A&O x 3 Skin: normal turgor, cap refill <2 seconds Dx/Plan (1) Psoas abscess, left Code(s): K68.12 - PSOAS MUSCLE ABSCESS Status: Acute Comment: s/p CT-guided percutaneous drainage with indwelling catheter, continue saline flushes, continue Clindamycin/Cefepime, plan for home abx regimen (2) Metastatic primary lung cancer Code(s): C34.90 - MALIGNANT NEOPLASM OF UNSP PART OF UNSP BRONCHUS OR LUNG Status: Chronic Comment: Hx of brain metastasis s/p stereotactic and XRT therapy, supportive mgmt (3) Neutrophilic leukocytosis Code(s): D72.9 - DISORDER OF WHITE BLOOD CELLS, UNSPECIFIED Status: Acute Comment: Secondary to #1, serial monitoring, repeat CBC in am (4) Normocytic anemia Code(s): D64.9 - ANEMIA, UNSPECIFIED Status: Chronic Comment: Appears chronic, serial H/H monitoring - Plan continue antibiotics, social media marketer, out of bed/ambulate, DVT proph w/SCDs Stable currently -: Continue Cefepime/Clindamycin another 24h -: Education for catheter mgmt with family -: Continue saline flushes for catheter -: AM lab: CBC * Likely home in 24-48h
--- NOTE | 2018-06-19 14:55 | PRG ---
DATE OF SERVICE: 06/19/2018 Miley Rollins is a 62-year-old female, doing well. She reports diminished pain, although pain still persists in the left lower quadrant. She is afebrile, 93, 73, 93/61. The percutaneous drain has drained 60 mL in the last 24 hours. In the hospital, it is being irrigated 3 times a day with 10 mL of saline into the patient. The patient is being instructed on how to do this. The patient will have her and daughter present for nurses to instruct them on drain care. They may need home health to assist them with this endeavor, although family was appraised that home health will not be out there 3 times a day and they will have to assume some . They should record the drain output daily. Cultures are pending. Preliminary Gram stain, gram-positive cocci in pairs unchanged. Awaiting ID and sensitivity. Overall, possibilities of this psoas abscess include diverticulitis. The patient had a colonoscopy 2 to 3 years ago. She may need to have a flexible sigmoidoscopy repeated as an outpatient in the weeks to months to come. It could be related to her lung cancer if she has known cerebral mets is difficult to discern. I do not expect operative intervention and expect is to clear with CT-guided drainage, which has already been performed. The patient could be discharged home in the next 24 to 48 hours. We would plan to see her in my office later next week after undergoing outpatient CT scan of the abdomen and pelvis prior to that visit and after evaluating her drainage output over the week as an outpatient and the results of her CAT scan make further recommendations pending that. Currently, continue clindamycin and Cefepime. If she is allergic to penicillin, await ID and sensitivities from the cultures. As soon that she will go home on oral antibiotics appropriate per cultures, await these results. Job ID: [id number]
[2018-06-19] MEDS: Multivit, Therapeutic 1 TAB PO SCH (20:13)
[2018-06-19] MEDS: Atorvastatin Calcium 10 MG TAB PO SCH (20:13)
[2018-06-19] MEDS: Enoxaparin Sodium 40 MG/0.4 ML SYRINGE SC SCH (20:14)
[2018-06-20] MEDS: Clindamycin/D5W 600 MG in Premix Bag 1 BAG IVPB SCH ×3 (04:58→21:09)
[2018-06-20] MEDS: Sodium Chloride 0.9% 1,000 ML IV SCH ×2 (04:58→20:48)
[2018-06-20 07:12] LABS: Hemoglobin 8.7 g/dL (12.0-16.0); Mean Corpuscular HGB CONC 32.5 g/dL (32.0-36.0); Mean Corpuscular Hemoglobin 30.1 pg (27.0-31.0); Mean Corpuscular Volume 92.6 fL (78.0-98.0); Mean Platelet Volume 6.4 fL (7.4-10.4); Platelet Count 493 thou/uL (130-400); RBC Distribution Width 12.4 % (11.5-14.5); Red Blood Cell (RBC) Count 2.88 mill/uL (4.20-5.40); White Blood Cell (WBC) Count 5.9 thou/uL (4.8-10.8)
[2018-06-20] MEDS: Cefepime 2 GM in Sodium Chloride 0.9% 100 ML IVPB SCH ×2 (08:45→20:50)
[2018-06-20] MEDS: Polyethylene Glycol 3350 17 GM Packet PO SCH (08:46)
[2018-06-20] MEDS: Aspirin 81 mg Enteric Coated Tablet PO SCH (08:46)
[2018-06-20 08:49] LABS: Band 6 % (5-11); Eosinophils 6 % (0-10); Lymphocytes 27 % (21-51); MDiff Complete? YES; Monocytes 10 % (0-10); Myelocyte 1 % (0-0); Neutrophil 49 % (42-75); Polychromasia SLIGHT = 2-3 cells (100X) (0-2/hpf); RBC Morphology Normal
--- NOTE | 2018-06-20 11:23 | PDOC.PN ---
- Subjective Encounter Start Date: 06/20/18 Encounter Start Time: 11:15 Subjective: f/u for L psoas abscess s/p CT-guided percutaneous drainage POD#2 -: on Clindamycin/Cefepime. Initial cx with strep spp. - Objective MAR Reviewed: Yes Vital Signs & Weight: Vital Signs (12 hours) Temp Pulse Resp BP BP Pulse Ox 06/20/18 11:12 98.0 F 65 16 95/66 99 06/20/18 07:45 98.8 F 75 16 107/74 98 06/20/18 00:00 97.5 F L 76 16 109/71 95 Weight Admit Weight 106 lb 4.8 oz Weight 106 lb 5 oz I&O: 06/19/18 06/20/18 06/21/18 06:59 06:59 06:59 Intake Total 1340 2590 Output Total 40 210 Balance 1300 2380 Result Diagrams: 06/20/18 05:39 06/17/18 06:30 Additional Labs: Microbiology 06/18/18 13:40 Abdomen - Abscess Bacterial Culture - Preliminary Alpha-Hemolytic Streptococcus 06/18/18 13:40 Abdomen - Abscess Bacterial Culture - Preliminary Laboratory Tests 06/16/18 06/17/18 06/20/18 14:26 06:30 05:39 WBC 20.8 H 14.5 H Hgb 10.6 L 9.6 L Plt Count 574 H 518 H Neutrophils % 80.5 H Neutrophils % (Manual) 84 H 49 Phys Exam - Physical Examination Constitutional: NAD HEENT: PERRLA, sclera anicteric, oral pharynx no lesions Neck: no nodes, no JVD, supple, full ROM Respiratory: no wheezing, no rales, no rhonchi, clear to auscultation bilateral S1, S2 Cardiovascular: RRR, no significant murmur, no rub, gallop TTP in LLQ, percutaneous catheter in L flank with purulent drainage Gastrointestinal: soft, no distention, positive bowel sounds Musculoskeletal: no edema, pulses present Neurological: normal sensation, moves all 4 limbs Psychiatric: A&O x 3 Skin: normal turgor, cap refill <2 seconds Dx/Plan (1) Psoas abscess, left Code(s): K68.12 - PSOAS MUSCLE ABSCESS Status: Acute Comment: s/p CT-guided percutaneous drainage POD #2 with indwelling catheter, continue saline flushes, continue Clindamycin/Cefepime, plan for home abx regimen pending sensitivities of current strep spp (2) Metastatic primary lung cancer Code(s): C34.90 - MALIGNANT NEOPLASM OF UNSP PART OF UNSP BRONCHUS OR LUNG Status: Chronic Comment: Hx of brain metastasis s/p stereotactic and XRT therapy, supportive mgmt (3) Neutrophilic leukocytosis Code(s): D72.9 - DISORDER OF WHITE BLOOD CELLS, UNSPECIFIED Status: Acute Comment: Secondary to #1, serial monitoring, repeat CBC in am, improved (4) Normocytic anemia Code(s): D64.9 - ANEMIA, UNSPECIFIED Status: Chronic Comment: Appears chronic, serial H/H monitoring - Plan continue antibiotics, social service assistant, out of bed/ambulate, DVT proph w/SCDs Stable currently -: Continue Cefepime/Clindamycin pending final sensitivities -: OOB/ambulate -: Catheter care with family education on mgmt -: Continue IVF's another 24h * AM lab: CBC * Likely home in 24h
[2018-06-20] MEDS: traMADol HCl 50 MG TAB PO PRN (20:49)
[2018-06-20] MEDS: Atorvastatin Calcium 10 MG TAB PO SCH (20:49)
[2018-06-20] MEDS: Enoxaparin Sodium 40 MG/0.4 ML SYRINGE SC SCH (20:49)
[2018-06-20] MEDS: Multivit, Therapeutic 1 TAB PO SCH (20:49)
--- NOTE | 2018-06-20 23:40 | PRG ---
DATE OF SERVICE: 06/20/2018 Ms. Rollins is doing well today. Her pain is much improved. 97.8 degrees, 71, 103/71. Her CT guided drain in the last 24 hours put out 210 mL. They were irrigating it 3 times a day, and at home, they will irrigate it twice a day. Her family has been trained on drain management. Her white count is 5.9, down from 20 on admission. Hemoglobin 8.7, which is stable. The cultures reveal alpha hemolytic strep. Susceptibility is to follow and not yet available. Her abdomen is soft and nontender. Expect this alpha hemolytic strep to be susceptible most oral medications and would expect that we could send her home on oral medications tomorrow after final susceptibilities and identification is available. The stay as previously stated. The patient will follow up with me on this upcoming after having a CAT scan as an outpatient. Then, she will visit in my office to discuss drain management and progression of her abscess. Job ID: [id number]
[2018-06-21] MEDS: Clindamycin/D5W 600 MG in Premix Bag 1 BAG IVPB SCH ×3 (05:15→21:17)
[2018-06-21] MEDS: Polyethylene Glycol 3350 17 GM Packet PO SCH (08:11)
[2018-06-21] MEDS: Cefepime 2 GM in Sodium Chloride 0.9% 100 ML IVPB SCH ×2 (08:11→21:17)
[2018-06-21] MEDS: Aspirin 81 mg Enteric Coated Tablet PO SCH (08:11)
[2018-06-21 08:36] LABS: Band 5 % (5-11); Eosinophils 4 % (0-10); Hemoglobin 9.4 g/dL (12.0-16.0); Lymphocytes 28 % (21-51); MDiff Complete? YES; Mean Corpuscular HGB CONC 32.4 g/dL (32.0-36.0); Mean Corpuscular Hemoglobin 29.7 pg (27.0-31.0); Mean Corpuscular Volume 91.7 fL (78.0-98.0); Mean Platelet Volume 6.2 fL (7.4-10.4); Monocytes 6 % (0-10); Neutrophil 57 % (42-75); Platelet Count 541 thou/uL (130-400); Platelet Morphology Comment Appears Increased; RBC Distribution Width 12.6 % (11.5-14.5); Red Blood Cell (RBC) Count 3.18 mill/uL (4.20-5.40); White Blood Cell (WBC) Count 5.4 thou/uL (4.8-10.8)
[2018-06-21] MEDS: Sodium Chloride 0.9% 1,000 ML IV SCH (09:20)
--- NOTE | 2018-06-21 09:23 | PDOC.PN ---
- Subjective Encounter Start Date: 06/21/18 Encounter Start Time: 09:10 Subjective: f/u for L psoas abscess s/p CT-guided percutaneous catheter placement -: and drainage. Currently receiving Cefepime/Clindamycin. States feeling -: better overall. No fever recurrence. - Objective MAR Reviewed: Yes Vital Signs & Weight: Vital Signs (12 hours) Temp Pulse Resp BP Pulse Ox 06/21/18 07:28 98.1 F 61 16 99/66 98 Weight Admit Weight 106 lb 4.8 oz Weight 106 lb 5 oz I&O: 06/20/18 06/21/18 06/22/18 06:59 06:59 06:59 Intake Total 2590 240 Output Total 210 91 Balance 2380 149 Result Diagrams: 06/21/18 06:37 06/17/18 06:30 Additional Labs: Microbiology 06/18/18 13:40 Abdomen - Abscess Bacterial Culture - Preliminary Streptococcus anginosus Group 06/18/18 13:40 Abdomen - Abscess Bacterial Culture - Preliminary Alpha-Hemolytic Streptococcus 06/18/18 13:40 Abdomen - Abscess Bacterial Culture - Preliminary Laboratory Tests 06/16/18 06/17/18 06/20/18 14:26 06:30 05:39 WBC 20.8 H 14.5 H Hgb 10.6 L 9.6 L Plt Count 574 H 518 H Neutrophils % 80.5 H Neutrophils % (Manual) 84 H 49 Phys Exam - Physical Examination Constitutional: NAD HEENT: PERRLA, sclera anicteric, oral pharynx no lesions Neck: no nodes, no JVD, supple, full ROM Respiratory: no wheezing, no rales, no rhonchi, clear to auscultation bilateral Cardiovascular: RRR, no significant murmur, no rub, gallop mild TTP in LLQ, catheter in place Gastrointestinal: soft, no distention, positive bowel sounds Musculoskeletal: no edema, pulses present Neurological: normal sensation, moves all 4 limbs Psychiatric: A&O x 3 Skin: normal turgor, cap refill <2 seconds Dx/Plan (1) Psoas abscess, left Code(s): K68.12 - PSOAS MUSCLE ABSCESS Status: Acute Comment: s/p CT-guided percutaneous drainage POD #3 with indwelling catheter, continue saline flushes, continue Clindamycin/Cefepime, plan for home abx regimen pending sensitivities of current strep spp (2) Metastatic primary lung cancer Code(s): C34.90 - MALIGNANT NEOPLASM OF UNSP PART OF UNSP BRONCHUS OR LUNG Status: Chronic Comment: Hx of brain metastasis s/p stereotactic and XRT therapy, supportive mgmt (3) Neutrophilic leukocytosis Code(s): D72.9 - DISORDER OF WHITE BLOOD CELLS, UNSPECIFIED Status: Acute Comment: Secondary to #1, serial monitoring, repeat CBC in am, improved (4) Normocytic anemia Code(s): D64.9 - ANEMIA, UNSPECIFIED Status: Chronic Comment: Appears chronic, serial H/H monitoring - Plan plan discussed w/ family, continue antibiotics, director of social services, out of bed/ ambulate, DVT proph w/SCDs Stable currently -: De-escalate abx regimen pending cx sensitivities -: Pain control as clinically indicated -: OOB/ambulate -: Wound/catheter mgmt with family instruction * Likely home in 24h
[2018-06-21] MEDS: Acetaminophen 500 MG TAB PO PRN ×2 (11:55→23:53)
--- NOTE | 2018-06-21 20:20 | PRG ---
DATE OF SERVICE: 06/21/2018 SUBJECTIVE: Miley Rollins is doing well today. She is tolerating her diet. OBJECTIVE: LUNGS: Clear to auscultation. CARDIAC: Regular rate and rhythm without murmur or gallop. ABDOMEN: Soft and nontender. She has no tenderness in the left lower quadrant. LABORATORY DATA: Her white count is 5.4, hemoglobin stable. Cultures reveal Streptococcus anginosus. Drainage output from her drain is 90 mL in the last 24 hours. ASSESSMENT AND PLAN: Doing well. The patient will be discharged home on oral antibiotics from a surgical standpoint. She can follow up in my office on after a CAT scan same day. See discharge plans. The patient is ready for discharge on oral antibiotics. She can take Tylenol and ibuprofen for pain. Job ID: [id number]
[2018-06-21] MEDS: Multivit, Therapeutic 1 TAB PO SCH (21:17)
[2018-06-21] MEDS: Atorvastatin Calcium 10 MG TAB PO SCH (21:17)
[2018-06-21] MEDS: Enoxaparin Sodium 40 MG/0.4 ML SYRINGE SC SCH (21:17)
[2018-06-22] MEDS: Sodium Chloride 0.9% 1,000 ML IV SCH (05:31)
[2018-06-22] MEDS: Clindamycin/D5W 600 MG in Premix Bag 1 BAG IVPB SCH (05:31)
[2018-06-22] MEDS: Polyethylene Glycol 3350 17 GM Packet PO SCH (07:48)
[2018-06-22] MEDS: Cefepime 2 GM in Sodium Chloride 0.9% 100 ML IVPB SCH (07:49)
[2018-06-22] MEDS: Aspirin 81 mg Enteric Coated Tablet PO SCH (07:51)
--- NOTE | 2018-06-22 12:45 | PDOC.PN ---
- Subjective Encounter Start Date: 06/22/18 Encounter Start Time: 12:43 Patient seen and examined, no new issues or complaints. - Objective Vital Signs & Weight: Vital Signs (12 hours) Temp Pulse Resp BP Pulse Ox 06/22/18 07:35 98.1 F 64 16 109/76 97 Weight Admit Weight 106 lb 4.8 oz Weight 106 lb 5 oz I&O: 06/21/18 06/22/18 06/23/18 06:59 06:59 06:59 Intake Total 240 3350 Output Total 91 70 Balance 149 3280 Result Diagrams: 06/21/18 06:37 06/17/18 06:30 Phys Exam - Physical Examination Constitutional: NAD HEENT: PERRLA, moist MMs states she's seeing flashes of light Neck: no nodes, no JVD, supple Respiratory: no wheezing, no rales, no rhonchi Cardiovascular: RRR, no significant murmur, no rub Gastrointestinal: soft, non-tender, no distention Musculoskeletal: no edema, pulses present Dx/Plan (1) Metastatic primary lung cancer Code(s): C34.90 - MALIGNANT NEOPLASM OF UNSP PART OF UNSP BRONCHUS OR LUNG Status: Chronic Comment: Hx of brain metastasis s/p stereotactic and XRT therapy, supportive mgmt (2) Normocytic anemia Code(s): D64.9 - ANEMIA, UNSPECIFIED Status: Chronic Comment: Appears chronic, serial H/H monitoring (3) Hypertension Code(s): I10 - ESSENTIAL (PRIMARY) HYPERTENSION Status: Acute - Plan * Consult neuro Sx for patients new sympptomatology, patient states she gets an MRI every 3 months, she's due for another one * cont abx * no changes in plan of care for now, will await image results
--- NOTE | 2018-06-22 13:22 | CON ---
DATE OF CONSULTATION: This is Marisol Beltrán PA-C dictating a report for Josr Ayala MD. HISTORY OF PRESENT ILLNESS: The patient is a 62-year-old female with a past medical history of lung cancer with brain metastases with most recent treatments in 2018. The patient reports that she was doing well until approximately 3 weeks ago when she had gradual development of left lower quadrant pain, nausea, and generalized weakness. She presented to the hospital on 2018 for further evaluation of these symptoms. At that time, CT revealed a large fluid collection in the left lower quadrant. This was ultimately drained percutaneously by ID and grew positive Staph anginosus. She was also seen by general surgery for fluid collection, who felt this was likely to represent infectious etiology likely from diverticulitis versus malignancy. She had a repeat CT of the chest, abdomen, and pelvis and was evaluated by Oncology, who report no significant recurrence of her prior cancer. She is currently being treated with clindamycin and cefepime IV for abdominal abscess following percutaneous drainage. Her white blood cell count is trending down and she plans to follow up for drain removal with gen surgery next week. Additionally, during her stay, she reports over the last day she has had increased vision changes in the right eye. She describes this as a bright light flashes and floaters in the right peripheral vision. She is particularly concerned about this and reports similar symptoms to when she had recurrence of her brain metastases in 2018. She denies any significant headaches, dizziness, or any other associated symptoms. Her last brain MRI and visit with Dr. Peguero was in February 2018 and at that time, there was no evidence of recurrent metastatic brain lesions. PAST MEDICAL HISTORY: Adenocarcinoma of the lung with brain metastases, hypertension, hyperlipidemia, and arthritis. PAST SURGICAL HISTORY: Occipital intracranial tumor resection after tactic radiosurgery and multiple brain metastases. ALLERGIES: TO PENICILLIN. REVIEW OF SYSTEMS: Per HPI. PHYSICAL EXAMINATION: VITAL SIGNS: Temperature is 98.1, pulse is 64, respirations 16, the patient is 97% on room air, and blood pressure is 109/76. CONSTITUTIONAL: Awake, alert, in no acute distress. HEENT: Head; normocephalic and atraumatic. Eyes; PERRLA. Extraocular movements intact. ENT; oral mucosa is pink, intact, and moist. The patient has normal voice. NECK: Nontender to palpation. Free active range of motion. No meningismus or nuchal rigidity. CARDIAC: Regular rate and rhythm. LUNGS: The patient has symmetric chest expansion and breathing comfortably. MUSCULOSKELETAL: Free active range of motion of the upper extremities. No focal motor weakness. No reflex asymmetry. Free active range of motion the right lower extremity. No focal motor weakness or reflex asymmetry in the left lower extremity. The patient denies any weakness, but reports she is quite limited by pain secondary to recent percutaneous drainage and indwelling drain catheter of her left lower quadrant abscess. NEURO: She is A and O x4. She has normal speech. No focal motor weakness is appreciated. She does have bilateral upper extremity dysmetria with finger-to- nose. Right is slightly more pronounced than the left. ASSESSMENT AND PLAN: This is a 62-year-old female with a history of adenocarcinoma of the lung with brain metastases, who is having increased vision changes of the right eye. We will plan to evaluate this with a new MRI of the brain with and without contrast. I will notify Dr. Peguero's Team for review of this imaging as well. Job ID: [id number] MTDD
[2018-06-22] MEDS ORDERED: Gadobenate Dimeglumine 529 MG/1 ML (20ML VIAL) ONE (13:27)
--- NOTE | 2018-06-22 15:32 | MRI ---
MRI BRAIN WITH AND WITHOUT CONTRAST: Date: 06/22/18 Multiplanar, multisequential imaging of brain obtained. INDICATION: Lung cancer with brain mets. Visual disturbance. Comparison made to prior MRI brain dated 03/13/18. Correlation also made to prior MRI brain of . Prior images have demonstrated a focal lesion parasagittal area of the superior left frontal lobe. FINDINGS: Large operative defect in the left occipital region is again noted, unchanged. Ventricles remain normal size and position. Focal cystic lesion near the anterior frontal horn is unchanged. Moderately severe chronic ischemic white matter changes are seen bilaterally and appear stable. The small focal signal abnormality in the parasagittal region of the superior left frontal lobe near the falx is again noted. There is linear signal at this site on the noncontrast T1 study which may in dicate faint calcification or methemoglobin. This focus does show mild enhancement on the postcontras t exam, but this is stable from the prior studies. It measures approximately 8-9 mm AP dimension. No other abnormal enhancement identified. IMPRESSION: Stable MRI brain findings. The enhancing lesion parasagittal location superior left frontal lobe near the falx is stable in appearance. No new lesion identified. POS: [facility]
[2018-06-22] MEDS: metroNIDAZOLE 500 MG TAB PO SCH ×2 (15:54→20:18)
[2018-06-22] MEDS: Ciprofloxacin 500 MG TAB PO SCH (20:17)
[2018-06-22] MEDS: Atorvastatin Calcium 10 MG TAB PO SCH (20:18)
[2018-06-22] MEDS: Multivit, Therapeutic 1 TAB PO SCH (20:18)
[2018-06-22] MEDS: Enoxaparin Sodium 40 MG/0.4 ML SYRINGE SC SCH (20:19)
[2018-06-23] MEDS: Ciprofloxacin 500 MG TAB PO SCH (05:33)
[2018-06-23] MEDS: Sodium Chloride 0.9% 1,000 ML IV SCH (05:34)
[2018-06-23] MEDS: Ondansetron PF 4 MG/2 ML Vial IVP PRN (06:23)
[2018-06-23] MEDS: metroNIDAZOLE 500 MG TAB PO SCH ×2 (08:16→14:39)
[2018-06-23] MEDS: Aspirin 81 mg Enteric Coated Tablet PO SCH (08:16)
[2018-06-23] MEDS: Polyethylene Glycol 3350 17 GM Packet PO SCH (08:17)
--- NOTE | 2018-06-23 09:28 | PRG ---
DATE OF SERVICE: 06/23/2018 Ms. Rollins came to the hospital over the weekend and was admitted for intestinal mass. Neurosurgery was consulted. MRI scan was done. She was seen in this morning in her hospital room. Mrs. Rollins has been a patient in our clinic and she has had multiple surgical and radiation treatments for metastatic cancer. This morning she is feeling well. She has a scotoma in the same visual field that she has had before, may be a focal seizure. Otherwise, I found no new neurological deficit. Her MRI scan looked better than it did before with the most superior recently radiated lesion shrinking in size without any new lesions. Ms. Rollins can be seen in regular followup in Neurosurgery Clinic. Job ID: [id number] [facility]
--- NOTE | 2018-06-23 12:10 | PDOC.EVN ---
Event Note - Event Note Event Note: DC SUMMARY #[id number]
[2018-06-23 16:06] VITALS: BP 116/78; TEMP 98.2
--- NOTE | 2018-06-24 02:47 | DIS ---
DATE OF ADMISSION: 06/16/2018 DATE OF DISCHARGE: 06/23/2018 ADMITTING DIAGNOSES: A direct admit from her PCP's office for generalized weakness, past medical history of presence of metastatic lung cancer to the brain. DISCHARGE DIAGNOSES: Generalized weakness, resolved. HOSPITAL COURSE: This is a 62-year-old female with a known history of lung cancer with metastases to the brain. The patient admitted to the Internal Medicine team, also was followed very closely by General Surgery, GI, and Neurosurgery. The patient had an MRI scan done due to visual changes noted on her physical exam, which did not show any changes from her prior studies. The patient was stable at point in time of discharge, given medications Cipro and Flagyl for 5-day therapy to complete a course of antibiotics once here in the hospital, the patient was cleared by Neurosurgery at time of discharge as well. The patient was advised to follow up with PCP and Neurosurgery within 1 to 2 weeks for further management and care. At point in time of discharge, case and plan were discussed with the patient at length. She understood and agreed with this plan. CONDITION: Stable. DISPOSITION: Home. FOLLOWUP: Follow up with PCP, Neurosurgery, and GI within 1 to 2 weeks. MEDICATIONS: See MAR. ACTIVITY: As tolerated with assistance as needed. PROGNOSIS: Guarded. Job ID: [id number]
== END 2018-06-23 16:48 | disposition home health service (06) | DRG 372 ==
LOC: T4-A 12:40
PROVIDERS: ADMIT Internal Medicine; ATTEND Internal Medicine
PROC: 0W9J30Z Drainage of Pelvic Cavity with Drainage Device, Percutaneous Approach (ICD-10-PCS; principal; 2018-06-18)
DX: K68.12 Psoas muscle abscess (principal); C34.90 Malignant neoplasm of unspecified part of unspecified bronchus or lung; C79.31 Secondary malignant neoplasm of brain; E44.0 Moderate protein-calorie malnutrition; I10 Essential (primary) hypertension; K59.00 Constipation, unspecified; E78.5 Hyperlipidemia, unspecified; K21.9 Gastro-esophageal reflux disease without esophagitis; F32.9 Major depressive disorder, single episode, unspecified; B95.4 Other streptococcus as the cause of diseases classified elsewhere; D64.9 Anemia, unspecified; Z68.21 Body mass index [BMI] 21.0-21.9, adult; M19.90 Unspecified osteoarthritis, unspecified site; H53.451 Other localized visual field defect, right eye; Z87.891 Personal history of nicotine dependence; Z79.82 Long term (current) use of aspirin; Z79.899 Other long term (current) drug therapy; Z92.3 Personal history of irradiation; Z92.21 Personal history of antineoplastic chemotherapy; Z98.890 Other specified postprocedural states; Z85.118 Personal history of other malignant neoplasm of bronchus and lung; Z88.0 Allergy status to penicillin; Z86.73 Personal history of transient ischemic attack (TIA), and cerebral infarction without residual deficits; Z96.651 Presence of right artificial knee joint; Z98.82 Breast implant status; Z80.3 Family history of malignant neoplasm of breast; Z80.6 Family history of leukemia
CPT/HCPCS: 36415; 49020; 70553; 71260; 74177; 77002; 80048; 80053; 85007; 85025; 85027; 85060; 87070; 87076; 87077; 87205; 89051; C1729; J0692; J1642; J1650; J2250; J2405; J2550; J3010; J3490; J7050; Q9966

== ENCOUNTER 2018-06-26 07:31 | Outpatient (CLI) | payer BC ==
--- NOTE | 2018-06-26 10:01 | CT ---
CONTRAST ENHANCED CTA IMAGES PELVIS: HISTORY: A 62-year-old female with left psoas abscess. FINDINGS: Contrast-enhanced CT images of the pelvis obtained. Comparison is made to a previous exam from 2018. Contrast-enhanced CT images of the pelvis demonstrate previously noted left psoas abscess to have bee n completely drained. There is a left lateral perirenal space and iliacus drainage catheter which co mpletely has decompressed the left iliopsoas abscess. All of the necrotic fluid has been removed. D rainage catheter remains in place. Where there was the area of abscess, there is some residual enhan cing scar developing. No other significant pelvic masses or lesions seen. Some colonic diverticulosis is present. IMPRESSION: Drained left iliopsoas abscess. POS: [facility]
[2018-06-26] MEDS ORDERED: Iopamidol 370 76% 100 ML VIAL ONE (15:53)
== END 2018-06-26 07:32 | disposition home or self-care (01) ==
LOC: SCSCT 07:31
PROVIDERS: ATTEND Specialist
DX: K68.12 Psoas muscle abscess (principal)
CPT/HCPCS: 72193; Q9967

== ENCOUNTER 2018-07-01 13:35 | Outpatient (CLI) | payer BC ==
--- NOTE | 2018-07-01 13:57 | RAD ---
XR Chest Pa Lat STANDARD HISTORY: Lung cancer COMPARISON: 03/04/2018 study. FINDINGS: Heart size is within normal limits postoperative changes in the right paratracheal and mary ann r region are again noted. The lungs are clear of infiltrates. A right-sided Mediport catheter is in place. Bilateral breast implants are again seen. IMPRESSION: Stable exam
== END 2018-07-01 13:36 | disposition home or self-care (01) ==
LOC: RAD 13:35
PROVIDERS: ATTEND Internal Medicine Medical Oncology
DX: C34.12 Malignant neoplasm of upper lobe, left bronchus or lung (principal)
CPT/HCPCS: 71046; 80053; 82248; 82378; 83615; 84100; 84550

== ENCOUNTER 2018-09-23 15:38 | Outpatient (CLI) | payer BC ==
--- NOTE | 2018-09-23 17:50 | RAD ---
TWO VIEWS CHEST: 09/23/18 HISTORY: Lung cancer. COMPARISON: 07/01/18. FINDINGS: Right internal jugular vein Mediport catheter remains in place. Calcified bilateral breast prostheses are again noted. The cardiac silhouette is stable in size. Pulmonary vasculature is within normal limits. The lungs ar e clear. There are stable postoperative changes seen in the right hilar and right paramediastinal loc ation. There has been no interval change when compared to the prior exam. IMPRESSION: Stable chest. POS: [facility]
== END 2018-09-23 15:39 | disposition home or self-care (01) ==
LOC: BICRAD 15:38
PROVIDERS: ATTEND Internal Medicine Medical Oncology
DX: C34.12 Malignant neoplasm of upper lobe, left bronchus or lung (principal)
CPT/HCPCS: 71046; 80053; 82248; 82378; 83615; 84100; 84550

== ENCOUNTER 2018-10-14 13:15 | Outpatient (CLI) | payer BC ==
--- NOTE | 2018-10-14 14:39 | MRI ---
BRAIN MRI WITH AND WITHOUT CONTRAST: 10/14/18 COMPARISON: 06/22/18. INDICATIONS: Secondary malignant neoplasm of brain, history of lung cancer. FINDINGS: Redemonstration of multifocal white matter signal abnormality throughout the cerebral hemispheres and moderate sized cavitary encephalomalacia of the left occipital temporal lobe. There is no new restri cted diffusion, significant mass effect or midline shift. Ventricular system is stable. Grossly stabl e volume of pathologic intra-axial enhancement at the medial left frontoparietal lobe measuring appro ximately 7 mm AP x 9 mm craniocaudal, grossly stable. Mild associated hemosiderin deposition and rosalee cent intrinsic T1 hyperintensity remain, compatible with small volume adjacent blood products. IMPRESSION: Grossly stable subcentimeter enhancement of the medial left frontoparietal lobe with adjacent intrins ic T2 hyperintensity and susceptibility artifact indicating residua from patient's known, prior metas tatic lesion. No significant interval detrimental change. POS: [facility]
== END 2018-10-14 13:16 | disposition home or self-care (01) ==
LOC: TBSIIMAG 13:15
PROVIDERS: ATTEND Neurological Surgery
DX: C79.31 Secondary malignant neoplasm of brain (principal); C80.1 Malignant (primary) neoplasm, unspecified
CPT/HCPCS: 70553

== ENCOUNTER 2019-01-13 13:31 | Outpatient (CLI) | payer BC ==
[2019-01-13 13:50] LABS: Estimated GFR-MDRD - POC Greater than 90
[2019-01-13] MEDS ORDERED: Magnevist 469MG/ML 20 ML VIAL ONE (14:04)
--- NOTE | 2019-01-13 15:08 | MRI ---
MRI BRAIN WITH AND WITHOUT CONTRAST: DATE: 01/13/2019 HISTORY: 63-year-old female follow-up metastatic brain tumor from lung cancer primary. COMPARISON: 10/14/2018 TECHNIQUE: Multiplanar, multisequence MRI of the brain performed pre- and post-IV injection of gadolinium based contrast agent. FINDINGS: At the left paramedian cerebrum, very close to the interhemispheric fissure superiorly, again noted i s the small focal, irregularly shaped, approximately 0.8 x 0.4 x 1 cm patchy lesion which is T2 hyperintense, FLAIR hyperintense, has minimal hemosiderin or calcific stain, and has patchy enhanceme nt, located in the left superior upper posterior frontal lobe parenchyma, associated with a somewhat larger region of adjacent nonenhancing patch of T2 hyperintensity probably representing vaso genic edema (versus chronic ischemic white matter change) is in the gyrus just anterior to the left precentral gyrus. This enhancing lesion is unchanged since 10/14/2018, but slightly smaller compared t o 06/22/2018. It may represent a treated metastatic lesion. Again noted is the large postsurgical left occipital parenchymal defect at site of resection of prior occipital metastatic lesion. No evidence of recurrence in that location. Small, 0.7 cm nonenhancing intraparenchymal cyst in the right frontal deep white matter is unchanged since 10/14/2018. There are moderate to severe chronic ischemic white matter changes of the cerebrum. No obstructive hy drocephalus, mass effect, midline shift, extra-axial fluid collection, or restricted diffusion. IMPRESSION: 1) the small patchy enhancing lesion in the left upper paramedian frontal lobe parenchyma, consistent with treated metastatic deposit, is stable since 10/14/2018, and slightly smaller compared to 06/22/2018. 2) high-grade chronic ischemic white matter changes, perhaps related to external brain irradiation th erapy. 3) postsurgical left occipital porencephalic large defect.
== END 2019-01-13 13:32 | disposition home or self-care (01) ==
LOC: TBSIIMAG 13:31
PROVIDERS: ATTEND Neurological Surgery
DX: C79.31 Secondary malignant neoplasm of brain (principal); C34.90 Malignant neoplasm of unspecified part of unspecified bronchus or lung; I67.82 Cerebral ischemia; Z98.890 Other specified postprocedural states
CPT/HCPCS: 70553; 82565; A9579

== ENCOUNTER 2019-01-13 16:16 | Outpatient (CLI) | payer BC ==
--- NOTE | 2019-01-13 16:46 | RAD ---
EXAM: Chest PA and lateral: HISTORY: Lung cancer. Cough. COMPARISON: 09/23/2018 FINDINGS: Stable bilateral breast augmentation in a right-sided Mediport catheter. Heart: Normal cardiac silhouette Aorta: The elongated Pulmonary vessels: Normal Costophrenic angles: Costophrenic angles are clear. Lungs: Hyperinflation with chronic changes. Suture chain on the medial aspect of the right lung. Pneumothorax: No pneumothorax Osseous structures: Stable scoliotic curvature. IMPRESSION: Chronic changes.
== END 2019-01-13 16:17 | disposition home or self-care (01) ==
LOC: BICRAD 16:16
PROVIDERS: ATTEND Internal Medicine Medical Oncology
DX: C34.12 Malignant neoplasm of upper lobe, left bronchus or lung (principal)
CPT/HCPCS: 70553; 71046; 82565

== ENCOUNTER 2019-04-07 07:39 | Outpatient (CLI) | payer BC ==
--- NOTE | 2019-04-09 13:29 | MMO ---
Bilateral MAMMO Bilat Screen [facility]. CLINICAL HISTORY: Patient is 63 years old and is seen for screening. The patient has the following family history of breast cancer: mother. The patient has a history of brain cancer at age 58 and lung cancer at age 58. The patient has a history of bilateral Implants in 1979. VIEWS: The views performed were: bilateral craniocaudal; bilateral craniocaudal with tomosynthesis; bilateral mediolateral oblique; bilateral mediolateral oblique with tomosynthesis; and bilateral Implant displaced with tomosynthesis. FILMS COMPARED: The present examination has been compared to prior imaging studies performed at [facility] on 03/07/2015, 03/20/2016, 04/02/2017 and 04/04/2018. This study has been interpreted with the assistance of computer-aided detection. MAMMOGRAM FINDINGS: There are scattered fibroglandular densities. There are no suspicious masses, suspicious calcifications, or new areas of architectural distortion. Normal implants are present. IMPRESSION: THERE IS NO MAMMOGRAPHIC EVIDENCE OF MALIGNANCY. A ROUTINE FOLLOW-UP MAMMOGRAM IN 1 YEAR IS RECOMMENDED. THE RESULTS OF THIS EXAM WERE SENT TO THE PATIENT. ACR BI-RADS Category 1 - Negative MAMMOGRAPHY NOTE: 1. A negative mammogram report should not delay a biopsy if a dominant of clinically suspicious mass is present. 2. Approximately 10% to 15% of breast cancers are not detected by mammography. 3. Adenosis and dense breasts may obscure an underlying neoplasm. Reported by: KRISTINA SCHWAB MD Electonically Signed: [id number]
== END 2019-04-07 07:40 | disposition home or self-care (01) ==
LOC: BICMAMMO 07:39
PROVIDERS: ATTEND Family Medicine
DX: Z12.31 Encounter for screening mammogram for malignant neoplasm of breast (principal); Z80.3 Family history of malignant neoplasm of breast; Z98.82 Breast implant status; Z85.841 Personal history of malignant neoplasm of brain
CPT/HCPCS: 77063; 77067

== ENCOUNTER 2019-04-14 13:06 | Outpatient (CLI) | payer BC ==
[~2019-04-14 13:06] MED LIST: Magnevist 469MG/ML 20 ML VIAL ONE
--- NOTE | 2019-04-14 15:09 | MRI ---
EXAM: BRAIN MRI WITH AND WITHOUT CONTRAST: 04/14/19 COMPARISON: 01/13/19. HISTORY: Malignant neoplasm of the occipital bone. History of cancer to the lung and brain. History of radiati on therapy and chemotherapy. FINDINGS: Stable postsurgical change involving the left occipital bone as well as the left occipital brain pare nchyma. There is a postoperative cavity. There is associated encephalomalacia and gliosis involving t he left occipital lobe and parietal lobe. Gradient echo images demonstrate hemosiderin deposition at the operative sites, unchanged. There does not appear to be any new evidence of intraparenchymal hemo rrhage. T2 and FLAIR white matter hyperintensities are confluent and likely represent at combination of postt reatment change as well as age related gliosis. Central arterial flow voids are maintained. Absence restricted diffusion. Mucous retention cyst in the right maxillary sinuses. Adequate aeration of the mastoid air cells. Postcontrast images demonstrate a small enhancing focus in the medial left upper lobe, near the verte x measuring 0.5 cm. This lesion is less prominent than the previous examination. Previously, this les ion measured 0.8 cm in maximum dimension. Nonspecific pachymeningeal enhancement, likely representing post treatment change. Stable cystic focus in the anterior left periventricular white matter. No associated enhancement. IMPRESSION: 1. Interval decrease in size of an enhancing focus in the medial left upper lobe (left upper par amedian frontal lobe). There is partial response to therapy. 2. No new enhancing foci in the brain parenchyma. 3. Stable postoperative/posttreatment change in the left occipital region. 4. Stable chronic small vessel ischemic change in the white matter. POS: [facility]
== END 2019-04-14 13:07 | disposition home or self-care (01) ==
LOC: TBSIIMAG 13:06
PROVIDERS: ATTEND Neurological Surgery
DX: C71.4 Malignant neoplasm of occipital lobe (principal); I67.82 Cerebral ischemia; Z98.890 Other specified postprocedural states
CPT/HCPCS: 70553; 82565

== ENCOUNTER 2019-05-18 10:40 | Outpatient (CLI) | payer BC ==
--- NOTE | 2019-05-18 10:54 | RAD ---
Chest 2 views HISTORY: Lung cancer. COMPARISON: 01/13/2019. FINDINGS: Cardiac silhouette and pulmonary vasculature are unremarkable. Mediastinum is midline allow ing for curvature of the thoracic spine. Postoperative changes of the right suprahilar level and right internal jugular Port-A-Cath again demonstrated. No confluent airspace consolidation, pneumotho rax, or pleural fluid. Calcified bilateral breast implants. IMPRESSION : Postoperative changes and other chronic-type findings are stable.
== END 2019-05-18 10:41 | disposition home or self-care (01) ==
LOC: BICRAD 10:40
PROVIDERS: ATTEND Internal Medicine Medical Oncology
DX: C34.10 Malignant neoplasm of upper lobe, unspecified bronchus or lung (principal); M43.9 Deforming dorsopathy, unspecified; Z98.890 Other specified postprocedural states; Z98.82 Breast implant status
CPT/HCPCS: 71046

== ENCOUNTER 2019-07-30 08:21 | Outpatient (CLI) | payer BC ==
--- NOTE | 2019-07-30 11:35 | MRI ---
MRI BRAIN WITH AND WITHOUT CONTRAST: Date: 07/30/2019 INDICATION: Follow-up brain tumor. Comparison made to prior MRI brain dated 04/14/2019. FINDINGS: Operative defect involving the left occipital lobe is again seen and appears unchanged. There is no e vidence of associated enhancement. Chronic ischemic white matter changes appear stable. A cystic lesi on in the right periventricular white matter adjacent to the right anterior horn is stable. On postcontrast images, there is a focus of enhancement in the superior frontal lobe in the vertex in volving the superior frontal gyrus in a parasagittal location. This tiny linear enhancement is stable when compared to 04/14/2019. No other enhancement. No interval change. IMPRESSION: Stable MRI findings. POS: [facility]
== END 2019-07-30 08:22 | disposition home or self-care (01) ==
LOC: TBSIIMAG 08:21
PROVIDERS: ATTEND Neurological Surgery
DX: C79.31 Secondary malignant neoplasm of brain (principal); I67.82 Cerebral ischemia; G93.0 Cerebral cysts
CPT/HCPCS: 70553; 82565

== ENCOUNTER 2019-09-15 08:52 | Outpatient (CLI) | payer BC ==
--- NOTE | 2019-09-15 11:35 | RAD ---
PA AND LATERAL CHEST: INDICATION: Followup lung cancer. COMPARISON: 05/18/2019. FINDINGS: Lungs appear clear. No infiltrate, vascular congestion, or effusion. No evidence of pulmonary mass or nodule. A MediPort catheter appears in adequate position and is unchanged. Heart and mediastinum unremarkabl e. Bilateral breast prostheses are seen with capsular calcification. Osseous structures unremarkabl e. IMPRESSION: No acute finding or interval change. POS: [facility]
== END 2019-09-15 08:53 | disposition home or self-care (01) ==
LOC: BICRAD 08:52
PROVIDERS: ATTEND Internal Medicine Medical Oncology
DX: C34.10 Malignant neoplasm of upper lobe, unspecified bronchus or lung (principal)
CPT/HCPCS: 71046

== ENCOUNTER 2019-11-25 08:40 | Outpatient (CLI) | payer BC ==
[2019-11-25] MEDS ORDERED: Magnevist 469MG/ML 20 ML VIAL ONE (09:14)
--- NOTE | 2019-11-25 11:44 | MRI ---
Exam: Brain MRI with and without contrast HISTORY: Brain lab protocol. Patient is status post surgery. Secondary malignant neoplasm of brain COMPARISON: 04/14/2019, 07/30/2019 FINDINGS: Gradient echo sequence: Stable hypointensities involving the surgical bed. Calvarium: Appropriate T1 marrow signal intensity Midline brain parenchyma: Unremarkable Cerebrum:Stable postsurgical changes involving the left occipital lobe. There is evidence of encephal omalacia and gliosis in the adjacent left parietal and occipital lobe. Stable confluent T2 and FLAIR white matter hyperintensities favored to be due to chronic small vessel ischemic change. There is a stable cystic focus along the anterior right corpus callosum. Ventricles: No evidence of hydrocephalus. Sinuses and mastoid air cells: Adequate aeration Diffusion: Central arterial flow is maintained. Absent restricted diffusion. Postcontrast images: No pathologic enhancement of the brain parenchyma. There is stable linear enhanc ement along the medial left frontal lobe, 0.4 x 0.2 cm. Additional findings: There are postoperative changes involving the left occipital scalp and calvarium . IMPRESSION: 1. Stable postsurgical change involving the posterior left cerebrum. 2. No abnormal enhancement to suggest recurrent or residual disease at the operative site or in the r emainder the cerebrum. 3. Stable linear enhancement along the left paramedian frontal lobe.
== END 2019-11-25 08:41 | disposition home or self-care (01) ==
LOC: TBSIIMAG 08:40
PROVIDERS: ATTEND Neurological Surgery
DX: C79.31 Secondary malignant neoplasm of brain (principal); Z98.890 Other specified postprocedural states
CPT/HCPCS: 70553; 82565; A9579

== ENCOUNTER 2020-03-15 08:36 | Outpatient (CLI) | payer BC ==
--- NOTE | 2020-03-15 09:21 | RAD ---
CHEST 2 VIEWS: HISTORY: Lung cancer followup. COMPARISON: 09/15/2019. FINDINGS: Right Port-A-Cath in place. Calcified bilateral breast augmentation prosthesis bilaterally. Minimal generalized levoscoliosis of the thoracic spine. Heart size is normal. The lungs are clear. IMPRESSION: No significant acute intrathoracic disease. No evidence for metastasis. POS: [facility]
== END 2020-03-15 08:37 | disposition home or self-care (01) ==
LOC: VACCSJX 08:36 → BICRAD 08:37
PROVIDERS: ATTEND Internal Medicine Medical Oncology
DX: Z08 Encounter for follow-up examination after completed treatment for malignant neoplasm (principal); Z85.118 Personal history of other malignant neoplasm of bronchus and lung
CPT/HCPCS: 71046

== ENCOUNTER 2020-03-28 09:08 | Outpatient (CLI) | payer BC ==
--- NOTE | 2020-03-28 11:38 | MRI ---
Exam: Brain MRI with and without contrast HISTORY: Secondary malignant neoplasm of the brain COMPARISON: 07/30/2019, 11/25/2019 FINDINGS: Gradient echo sequence: Stable hypointensity involving the operative site along the left cerebrum. No evidence of acute intracranial hemorrhage Calvarium: Appropriate T1 marrow signal intensity Midline brain parenchyma: Unremarkable Cerebrum:Stable T2 and FLAIR white matter hyperintensities suggesting chronic small vessel ischemic c hanges. Stable resection cavity involving the left occipital region. There is no significant mass effect or midline shift. Brain volume is age-appropriate. Stable T2 hyperintensity adjacent to the fr ontal horn of the right lateral ventricle. Ventricles: No evidence of hydrocephalus. Sinuses and mastoid air cells: Adequate aeration Diffusion: Central arterial flow is maintained. Absent restricted diffusion. Postcontrast images:No pathologic enhancement the brain parenchyma. No abnormal enhancement of the re section site. There is no MR evidence of recurrent or residual tumor. Stable linear enhancement in the left paramedian region. Stable postsurgical changes involving the left calvarium and overlying scalp IMPRESSION: 1. No significant interval change. No evidence of recurrent or residual tumor. 2. Stable postsurgical change in the left cerebrum.
== END 2020-03-28 09:09 | disposition home or self-care (01) ==
LOC: TBSIIMAG 09:08
PROVIDERS: ATTEND Neurological Surgery
DX: D49.6 Neoplasm of unspecified behavior of brain (principal); Z98.890 Other specified postprocedural states
CPT/HCPCS: 70553

== ENCOUNTER 2020-04-08 09:08 | Outpatient (CLI) | payer BC | END 2020-04-08 09:09 | disposition home or self-care (01) | LOC: BICMAMMO 09:08 | PROVIDERS: ATTEND Family Medicine | DX: Z12.31 Encounter for screening mammogram for malignant neoplasm of breast (principal); Z80.3 Family history of malignant neoplasm of breast; Z85.3 Personal history of malignant neoplasm of breast; Z98.82 Breast implant status | CPT/HCPCS: 77063; 77067 ==

== ENCOUNTER 2020-08-08 09:37 | Outpatient (CLI) | payer BC, OTHER ==
[2020-08-08] MEDS ORDERED: Magnevist 469MG/ML 20 ML VIAL ONE (13:58)
[2020-08-09 10:55] LABS: Estimated GFR-MDRD - POC Greater than 90
== END 2020-08-08 09:38 | disposition home or self-care (01) ==
LOC: TBSIIMAG 09:37
PROVIDERS: ATTEND Neurological Surgery
DX: D49.6 Neoplasm of unspecified behavior of brain (principal)
CPT/HCPCS: 70553; 82565; A9579

== ENCOUNTER 2021-01-10 13:32 | Outpatient (CLI) | payer BC | END 2021-01-10 13:33 | disposition home or self-care (01) | LOC: TBSIIMAG 13:32 | PROVIDERS: ATTEND Neurological Surgery | DX: C79.31 Secondary malignant neoplasm of brain (principal); C34.90 Malignant neoplasm of unspecified part of unspecified bronchus or lung; Z98.890 Other specified postprocedural states | CPT/HCPCS: 70553; 82565; A9579 ==

== ENCOUNTER 2021-03-13 10:34 | Outpatient (CLI) | payer BC | END 2021-03-13 10:35 | disposition home or self-care (01) | LOC: BICRAD 10:34 | PROVIDERS: ATTEND Internal Medicine Medical Oncology | DX: C34.10 Malignant neoplasm of upper lobe, unspecified bronchus or lung (principal) | CPT/HCPCS: 71046 ==

== ENCOUNTER 2021-04-10 08:13 | Outpatient (CLI) | payer BC | END 2021-04-10 08:14 | disposition home or self-care (01) | LOC: BICMAMMO 08:13 | PROVIDERS: ATTEND Family Medicine | DX: Z12.31 Encounter for screening mammogram for malignant neoplasm of breast (principal); Z80.3 Family history of malignant neoplasm of breast; Z85.841 Personal history of malignant neoplasm of brain; Z85.118 Personal history of other malignant neoplasm of bronchus and lung; Z98.82 Breast implant status | CPT/HCPCS: 77063; 77067 ==

== ENCOUNTER 2021-08-24 08:20 | Outpatient (CLI) | payer BC ==
[2021-08-24] MEDS ORDERED: Magnevist 469MG/ML 20 ML VIAL ONE (11:34)
== END 2021-08-24 08:21 | disposition home or self-care (01) ==
LOC: TBSIIMAG 08:20
PROVIDERS: ATTEND Neurological Surgery
DX: D49.6 Neoplasm of unspecified behavior of brain (principal); Z98.890 Other specified postprocedural states
CPT/HCPCS: 70553; A9579

== ENCOUNTER 2022-03-13 10:06 | Outpatient (CLI) | payer BC | END 2022-03-13 10:07 | disposition home or self-care (01) | LOC: BICRAD 10:06 | PROVIDERS: ATTEND Internal Medicine Medical Oncology | DX: C34.10 Malignant neoplasm of upper lobe, unspecified bronchus or lung (principal) | CPT/HCPCS: 71046 ==

== ENCOUNTER 2022-04-17 11:43 | Outpatient (CLI) | payer BC | END 2022-04-17 11:44 | disposition home or self-care (01) | LOC: BICMAMMO 11:43 | PROVIDERS: ATTEND Family Medicine | DX: Z12.31 Encounter for screening mammogram for malignant neoplasm of breast (principal); Z80.3 Family history of malignant neoplasm of breast; Z85.841 Personal history of malignant neoplasm of brain; Z85.118 Personal history of other malignant neoplasm of bronchus and lung; Z98.82 Breast implant status | CPT/HCPCS: 77063; 77067 ==

== ENCOUNTER 2023-04-22 11:14 | Outpatient (CLI) | payer BC, MEDICARE | END 2023-04-22 11:15 | disposition home or self-care (01) | LOC: BICMAMMO 11:14 | PROVIDERS: ATTEND Family Medicine | DX: Z12.31 Encounter for screening mammogram for malignant neoplasm of breast (principal); Z85.841 Personal history of malignant neoplasm of brain; Z85.118 Personal history of other malignant neoplasm of bronchus and lung; Z98.82 Breast implant status; Z80.3 Family history of malignant neoplasm of breast | CPT/HCPCS: 77063; 77067 ==

== ENCOUNTER 2023-08-26 12:04 | Outpatient (CLI) | payer MEDICARE | END 2023-08-26 12:05 | disposition home or self-care (01) | LOC: BICCT 12:04 | PROVIDERS: ATTEND Internal Medicine | DX: Z12.2 Encounter for screening for malignant neoplasm of respiratory organs (principal); R91.8 Other nonspecific abnormal finding of lung field; Z87.891 Personal history of nicotine dependence | CPT/HCPCS: 71271 ==

== ENCOUNTER 2024-02-11 10:14 | Outpatient (CLI) | payer MEDICARE | END 2024-02-11 10:15 | disposition home or self-care (01) | LOC: SCSMRI 10:14 | PROVIDERS: ATTEND Neurological Surgery | DX: C71.4 Malignant neoplasm of occipital lobe (principal) | CPT/HCPCS: 70553; 76376 ==

== ENCOUNTER 2024-03-16 09:30 | Outpatient (CLI) | payer MEDICARE | END 2024-03-16 09:31 | disposition home or self-care (01) | LOC: PET 09:30 | PROVIDERS: ATTEND Internal Medicine | DX: C34.12 Malignant neoplasm of upper lobe, left bronchus or lung (principal) | CPT/HCPCS: 78815; A9552 ==

== ENCOUNTER 2024-11-05 12:43 | Outpatient (CLI) | payer MEDICARE ==
[2024-11-05 13:19] LABS: Estimated GFR - POC 95.0
== END 2024-11-05 12:44 | disposition home or self-care (01) ==
LOC: SCSMRI 12:43
PROVIDERS: ATTEND Neurological Surgery
DX: C71.4 Malignant neoplasm of occipital lobe (principal)
CPT/HCPCS: 36415; 70553; 76376; 82565